=== PATIENT | female | born 1935 | race Two or more races ===

== ENCOUNTER 2016-12-19 17:09 | Inpatient (IN) | payer MEDICARE, BC ==
[~2016-12-19] VITALS: Ht 157.5 cm; Wt 59.0 kg
[2016-12-19 17:15] VITALS: BP 143/70
--- NOTE | 2016-12-19 17:29 | Emergency Room Report ---
History of Present Illness General Chief Complaint: Altered Level of Consciousness Source: Patient, Family Member Present Illness HPI 81-year-old female history of stage V pancreatic cancer, not currently on chemotherapy however finished it in the past (last was "few mos ago", also with R sided chemo port placed ~1 mo ago, presenting with fever for 3 days. Patient very tired and lethargic, history obtained by daughter. States that patient has had a fever MAXIMUM TEMPERATURE of 103, decreased by mouth intake. Denies any coughing or nausea. States that she had diarrhea about 2 episodes per day for the last 2 days. Denies any recent antibiotic use. Denies any recent hospitalizations. Allergies: Coded Allergies: No Known Allergies (Unverified , 12/19/16) Patient History Past Medical History: see triage record Past Surgical History: none Pertinent Family History: none Now: No Reviewed Nursing Documentation: PMH: Agreed, PSxH: Agreed Nursing Documentation-PMH Hx Cardiac Problems: No Hx Hypertension: No Hx Pacemaker: No Hx Asthma: No Hx COPD: No Hx Diabetes: No Hx Cancer: Yes - PANCREAS Hx Gastrointestinal Problems: No Hx Dialysis: No Hx Neurological Problems: Yes - DEMENTIA Hx Cerebrovascular Accident: No Hx Seizures: No Review of Systems All Other Systems: negative except mentioned in HPI Physical Exam Vital Signs Date Time Temp Pulse Resp B/P (MAP) Pulse Ox O2 Delivery O2 Flow Rate FiO2 12/19/16 17:10 130 16 145/78 88 Room Air Sp02 EP Interpretation: reviewed, normal General Appearance: other - Thin fragile elderly female, appears lethargic, however calm cooperative oriented x3. Head: normocephalic, atraumatic Eyes: bilateral eye normal inspection, bilateral eye PERRL, bilateral eye EOMI ENT: normal ENT inspection, normal pharynx, normal voice, moist mucus membranes Neck: normal inspection, full range of motion, supple Respiratory: normal inspection, lungs clear, normal breath sounds, no respiratory distress, no retraction, no wheezing, speaking full sentences, chest symmetrical Cardiovascular #1: normal inspection, regular rate, rhythm, no edema, normal capillary refill Cardiovascular #2: 2+ radial (R), 2+ radial (L) Gastrointestinal: normal inspection, non tender, soft, non-distended, no guarding Musculoskeletal: normal inspection, back normal, normal range of motion, non- tender Neurologic: normal inspection, alert, oriented x3, responsive, motor strength/ tone normal, sensory intact, normal gait, speech normal Psychiatric: normal inspection, judgement/insight normal, memory normal Skin: normal inspection, normal color, no rash, warm/dry, well hydrated, normal turgor Procedures Critical Care Time Critical Care Time 40 minutes of CC time 81-year-old female with fever chills altered mental status VS: Tachycardic, febrile, tachypneic Sepsis criteria met Airway patent. Not hypoxic. PLAN: IV access, labs, lactate, Blood/Urine Cx, Abx Anticipate admission to Tele vs. PEDRO CC time also includes review of labs, review of EMR, discussion with family and paperwork from SNF, d/w hospitalist CC could include dosing of pressors, additional Abx CC time does not include procedures Medical Decision Making Diagnostic Impression: Primary Impression: Severe sepsis Additional Impressions: DNR (do not resuscitate) Pancreatic cancer UTI (urinary tract infection) ER Course 81-year-old female presenting with fever DDX: Sepsis 2/2 UTI, PNA, bacteremia, will also consider intra-abdominal pathology such as colitis / diverticulitis / acalculous cholecystitis if no other course found but at this time abdomen soft, NT, ND Also patient with R sided chemo port that can be source of infection Plan: Airway patent, not hypoxic IV access - 30cc/kg bolus NS Obtain labs including cbc, bmp, blood culture, blood gas, lactate, ua, ucx CXR EKG Broad spectrum ABX ER course: Pt's airway remains patent Patient given NS at 30cc/kg bolus Patient's BP has remained stable with MAP > 65 Given broad spectrum abx - vancomycin and cefepime I spoke to both patient's daughter and son, states it is okay to admit patient to [place] as her daughter in law requesting [facility]. I also spoke in depth with patient and her children, patient is DNR/DNI Sepsis Re-examination Time: 7:30 PM VS: Temp 98.3 HR 96 BP 120/90 RR 19 CVS:tachycardic, regular rhythm Respiratory: Lungs clear bilaterally Peripheral pulses: 2+ radial Capillary refill: <2 seconds Skin exam: warm, dry, no rash, not mottled Disposition: Patient will admitted to telemetry Patient requires close monitoring of respiratory/hemodynamic status and continuation of IV antibiotics. D/W Hospitalist Please note that this Emergency Department Report was dictated using [employer] representative technology software, occasionally this can lead to erroneous entry secondary to interpretation by the dictation equipment. EKG Diagnostic Results EP Interpretation: Yes Rate: tachycardic Rhythm: NSR ST Segments: No acute changes ASA given to patient: No Rhythm Strip EP Interpretation: Yes Rate: 120 Rhythm: NSR, no PVCs, no ectopy Chest X-ray CXR: Ordered: Yes 1 view Indication: fever EP interpretation: Yes Interpretation: cannot properly evaluate L lung base ?effusion vs. infiltrate Impression: effusion vs. infiltrate L lung base Electronically signed by Basilia Newton MD Laboratory Tests Test 12/19/16 17:25 12/19/16 19:23 White Blood Count 16.9 K/UL (4.8-10.8) H Red Blood Count 4.04 M/UL (4.20-5.40) L Hemoglobin 11.0 G/DL (12.0-16.0) L Hematocrit 36.9 % (37.0-47.0) L Mean Corpuscular Volume 91 FL (80-99) Mean Corpuscular Hemoglobin 27.2 PG (27.0-31.0) Mean Corpuscular Hemoglobin Concent 29.8 G/DL (32.0-36.0) L Red Cell Distribution Width 16.1 % (11.6-14.8) H Platelet Count 201 K/UL (150-450) Mean Platelet Volume 6.6 FL (6.5-10.1) Neutrophils (%) (Auto) % (45.0-75.0) Lymphocytes (%) (Auto) % (20.0-45.0) Monocytes (%) (Auto) % (1.0-10.0) Eosinophils (%) (Auto) % (0.0-3.0) Basophils (%) (Auto) % (0.0-2.0) Differential Total Cells Counted 100 Neutrophils % (Manual) 88 % (45-75) H Lymphocytes % (Manual) 7 % (20-45) L Monocytes % (Manual) 5 % (1-10) Eosinophils % (Manual) 0 % (0-3) Basophils % (Manual) 0 % (0-2) Band Neutrophils 0 % (0-8) Platelet Estimate Adequate Platelet Morphology Normal Hypochromasia 1+ Anisocytosis 1+ Sodium Level 140 MMOL/L (136-145) Potassium Level 3.4 MMOL/L (3.5-5.1) L Chloride Level 104 MMOL/L (98-107) Carbon Dioxide Level 21 MMOL/L (21-32) Anion Gap 15 mmol/L (5-15) Blood Urea Nitrogen 16 mg/dL (7-18) Creatinine 1.2 MG/DL (0.55-1.30) Estimate Glomerular Filtration Rate mL/min (>60) Glucose Level 109 MG/DL (74-106) H Lactic Acid Level 1.00 mmol/L (0.66-2.22) Calcium Level 9.0 MG/DL (8.5-10.1) Total Bilirubin 1.2 MG/DL (0.2-1.0) H Direct Bilirubin 0.6 MG/DL (0.0-0.3) H Aspartate Amino Transferase (AST) 50 U/L (15-37) H Alanine Aminotransferase (ALT) 31 U/L (12-78) Alkaline Phosphatase 336 U/L (46-116) H Creatine Kinase MB 0.6 NG/ML (0.0-3.6) Troponin I 0.001 ng/mL (0.000-0.056) Pro-B-Type Natriuretic Peptide 1630 pg/mL (0-125) H Total Protein 6.7 G/DL (6.4-8.2) Albumin 2.8 G/DL (3.4-5.0) L Globulin 3.9 g/dL Albumin/Globulin Ratio 0.7 (1.0-2.7) L Urine Color Brown Urine Appearance Clear Urine pH 5 (4.5-8.0) Urine Specific [place] 1.020 (1.005-1.035) Urine Protein 2+ (NEGATIVE) H Urine Glucose (UA) Negative (NEGATIVE) Urine Ketones 3+ (NEGATIVE) H Urine Occult Blood 4+ (NEGATIVE) H Urine Nitrite Negative (NEGATIVE) Urine Bilirubin Negative (NEGATIVE) Urine Urobilinogen 4 MG/DL (0.0-1.0) H Urine Leukocyte Esterase 2+ (NEGATIVE) H Urine RBC 10-15 /HPF (0 - 2) H Urine WBC 5-10 /HPF (0 - 2) H Urine Squamous Epithelial Cells Few /LPF (NONE/OCC) Urine Amorphous Sediment Few /LPF (NONE) H Urine Bacteria Moderate /HPF (NONE) H Last Vital Signs Date Time Temp Pulse Resp B/P (MAP) Pulse Ox O2 Delivery O2 Flow Rate FiO2 12/19/16 17:10 130 16 145/78 88 Room Air Disposition: ADMITTED INPATIENT Condition: Serious Basilia Newton M.D. Dec 19, 2016 17:29
[2016-12-19] MEDS ORDERED: Cefepime HCl 1 GM in NS 55 ML IV SCH (17:30)
[2016-12-19] MEDS ORDERED: Vancomycin 1 GM in NS 275 ML IVPB ONE (17:30)
[2016-12-19] MEDS ORDERED: Cefepime 1gm vial ONE (17:40)
[2016-12-19 18:00] LABS: MEAN CORPUSCULAR HEMOGLOBIN 27.2 PG (27.0-31.0); MEAN CORPUSCULAR HGB CONC 29.8 G/DL (32.0-36.0); MEAN CORPUSCULAR VOLUME 91 FL (80-99); MEAN PLATELET VOLUME 6.6 FL (6.5-10.1); PLATELET COUNT 201 K/UL (150-450); RED BLOOD COUNT 4.04 M/UL (4.20-5.40); RED CELL DISTRIBUTION WIDTH 16.1 % (11.6-14.8); WHITE BLOOD COUNT 16.9 K/UL (4.8-10.8)
[2016-12-19 18:33] LABS: ANION GAP 15 mmol/L (5-15); CARBON DIOXIDE 21 MMOL/L (21-32); CHLORIDE 104 MMOL/L (98-107); CREATININE 1.2 MG/DL (0.55-1.30); POTASSIUM 3.4 MMOL/L (3.5-5.1); SODIUM 140 MMOL/L (136-145)
[2016-12-19] MEDS ORDERED: LORazepam Inj 2mg/ml 1ml IV ONE (18:45)
[2016-12-19] MEDS ORDERED: Vancomycin 1gm inj IVPB ONE (18:46)
[2016-12-19 18:47] LABS: ALANINE AMINOTRANSFERASE 31 U/L (12-78); ALBUMIN/GLOBULIN RATIO 0.7 (1.0-2.7); ASPARTATE AMINO TRANSFERASE 50 U/L (15-37); CKMB 0.6 NG/ML (0.0-3.6); TOTAL PROTEIN 6.7 G/DL (6.4-8.2)
[2016-12-19 19:00] VITALS: BP 124/53
[2016-12-19 19:00] LABS: BILIRUBIN,DIRECT 0.6 MG/DL (0.0-0.3)
[2016-12-19] MEDS ORDERED: METOPROLOL TART25 MG ORAL (19:33)
[2016-12-19] MEDS ORDERED: TRAMADOL HCL50 MG ORAL (19:33)
[2016-12-19 19:43] LABS: ANISOCYTOSIS 1+; BAND NEUTROPHILS % (MANUAL) 0 % (0-8); BASOPHILS % (MANUAL) 0 % (0-2); EOSINOPHILS % (MANUAL) 0 % (0-3); HYPOCHROMASIA 1+; LYMPHOCYTES % (MANUAL) 7 % (20-45); NEUTROPHILS % (MANUAL) 88 % (45-75); PLATELET ESTIMATE ADEQUATE; PLATELET MORPHOLOGY NORMAL; TOTAL CELLS COUNTED 100
[2016-12-19 19:49] LABS: APPEARANCE,URINE CLEAR; KETONES,URINE 3+ (NEGATIVE); LEUKOCYTE ESTERASE ,URINE 2+ (NEGATIVE); NITRITE,URINE NEGATIVE (NEGATIVE); PH,URINE 5 (4.5-8.0); PROTEIN,URINE 2+ (NEGATIVE); UROBILINOGEN,URINE 4 MG/DL (0.0-1.0)
[2016-12-19 19:53] LABS: AMORPHOUS SEDIMENT,UR FEW /LPF; BACTERIA,URINE MODERATE /HPF; SQUAMOUS EPITHELIAL CELL,UR FEW /LPF (NONE/OCC)
[2016-12-19 21:00] VITALS: BP 124/58
[2016-12-19] MEDS ORDERED: Nitroglycerin Subl 0.4mg tab SL PRN (21:45)
[2016-12-19] MEDS ORDERED: Albuterol/Ipratropium 3ml neb HHN PRN (21:45)
[2016-12-19] MEDS ORDERED: Miralax 17gm pkt ORAL PRN (21:45)
[2016-12-19 22:30] VITALS: BP 118/54
[2016-12-20 08:00] VITALS: BP 150/80
[2016-12-20] MEDS ORDERED: Heparin 5000 units/ml inj SUBQ SCH (09:00)
[2016-12-20] MEDS ORDERED: Morphine Sulfate 4mg/ml Inj IVP PRN (09:00)
[2016-12-20] MEDS ORDERED: ALPRAZolam 0.5mg tab ORAL PRN ×2 (09:00→17:00)
[2016-12-20] MEDS ORDERED: Metoprolol 25mg tab ORAL SCH (10:15)
--- NOTE | 2016-12-20 10:23 | Diagnostic Imaging Report ---
Indication: PAIN Technique: One view of the chest Comparison: none Findings: There is a right chest port catheter. There is a left-sided pleural effusion. The lungs, right pleural space are clear. Heart size is normal. Aorta is elongated tortuous and calcified. There is some retrocardiac atelectasis Impression: Left pleural effusion Other findings as noted
--- NOTE | 2016-12-20 11:17 | History and Physical ---
History of Present Illness General Date patient seen: Dec 19, 2016 Time patient seen: 21:00 Reason for Hospitalization: Altered Level of Consciousness Present Illness HPI 81-year-old female with PMHx of stage V pancreatic cancer, with R sided chemo port placed ~1 mo ago, presenting with fever for 3 days. Patient looked very tired and lethargic, She had a fever of 103. Denies any coughing or nausea. States that she had diarrhea about 2 episodes per day for the last 2 days. She was tachycardic and tachypnic and admitted to telemetry for further work up. Allergies: Coded Allergies: No Known Allergies (Unverified , 12/19/16) Medication History Scheduled Metoprolol Tartrate* (Metoprolol Tartrate*), 25 MG ORAL EVERY 12 HOURS, ( Reported) Tramadol Hcl* (Ultram*), 50 MG ORAL TID, (Reported) Patient History Healthcare decision maker CARLITOS TEJADA Resuscitation status Do Not Resuscitate Advanced Directive on File No Past Medical/Surgical History Past Medical/Surgical History: (1) HTN (hypertension) (2) Pancreatic cancer Review of Systems All Other Systems: negative except mentioned in HPI Physical Exam General Appearance: cachetic Lines, tubes and drains: peripheral HEENT: normocephalic, atraumatic Neck: non-tender, normal alignment Respiratory/Chest: chest wall non-tender, lungs clear Breasts: no masses Cardiovascular/Chest: normal peripheral pulses Abdomen: normal bowel sounds, non tender Genitourinary/Rectal: normal genital exam Extremities: normal range of motion Neurologic: post doctoral researcher II-XII grossly normal Last 24 Hour Vital Signs Date Time Temp Pulse Resp B/P (MAP) Pulse Ox O2 Delivery O2 Flow Rate FiO2 12/20/16 10:50 74 150/80 12/20/16 08:40 74 18 Room Air 21 12/20/16 08:40 Nasal Cannula 2.0 28 12/20/16 08:00 97.8 82 20 150/80 96 Room Air 12/20/16 04:00 85 12/20/16 00:00 77 12/19/16 22:45 98.3 91 17 118/54 97 Nasal Cannula 3.0 12/19/16 22:30 98.3 91 17 118/54 97 Nasal Cannula 3.0 12/19/16 21:00 98.3 96 17 124/58 98 Room Air 12/19/16 19:00 113 21 124/53 99 Room Air 12/19/16 17:15 102.9 121 20 143/70 99 Room Air 12/19/16 17:10 130 16 145/78 88 Room Air Laboratory Tests Test 12/19/16 17:25 12/19/16 19:23 White Blood Count 16.9 K/UL (4.8-10.8) H Red Blood Count 4.04 M/UL (4.20-5.40) L Hemoglobin 11.0 G/DL (12.0-16.0) L Hematocrit 36.9 % (37.0-47.0) L Mean Corpuscular Volume 91 FL (80-99) Mean Corpuscular Hemoglobin 27.2 PG (27.0-31.0) Mean Corpuscular Hemoglobin Concent 29.8 G/DL (32.0-36.0) L Red Cell Distribution Width 16.1 % (11.6-14.8) H Platelet Count 201 K/UL (150-450) Mean Platelet Volume 6.6 FL (6.5-10.1) Neutrophils (%) (Auto) % (45.0-75.0) Lymphocytes (%) (Auto) % (20.0-45.0) Monocytes (%) (Auto) % (1.0-10.0) Eosinophils (%) (Auto) % (0.0-3.0) Basophils (%) (Auto) % (0.0-2.0) Differential Total Cells Counted 100 Neutrophils % (Manual) 88 % (45-75) H Lymphocytes % (Manual) 7 % (20-45) L Monocytes % (Manual) 5 % (1-10) Eosinophils % (Manual) 0 % (0-3) Basophils % (Manual) 0 % (0-2) Band Neutrophils 0 % (0-8) Platelet Estimate Adequate Platelet Morphology Normal Hypochromasia 1+ Anisocytosis 1+ Sodium Level 140 MMOL/L (136-145) Potassium Level 3.4 MMOL/L (3.5-5.1) L Chloride Level 104 MMOL/L (98-107) Carbon Dioxide Level 21 MMOL/L (21-32) Anion Gap 15 mmol/L (5-15) Blood Urea Nitrogen 16 mg/dL (7-18) Creatinine 1.2 MG/DL (0.55-1.30) Estimat Glomerular Filtration Rate mL/min (>60) Glucose Level 109 MG/DL (74-106) H Lactic Acid Level 1.00 mmol/L (0.66-2.22) Calcium Level 9.0 MG/DL (8.5-10.1) Total Bilirubin 1.2 MG/DL (0.2-1.0) H Direct Bilirubin 0.6 MG/DL (0.0-0.3) H Aspartate Amino Transf (AST/SGOT) 50 U/L (15-37) H Alanine Aminotransferase (ALT/SGPT) 31 U/L (12-78) Alkaline Phosphatase 336 U/L (46-116) H Creatine Kinase MB 0.6 NG/ML (0.0-3.6) Troponin I 0.001 ng/mL (0.000-0.056) Pro-B-Type Natriuretic Peptide 1630 pg/mL (0-125) H Total Protein 6.7 G/DL (6.4-8.2) Albumin 2.8 G/DL (3.4-5.0) L Globulin 3.9 g/dL Albumin/Globulin Ratio 0.7 (1.0-2.7) L Urine Color Brown Urine Appearance Clear Urine pH 5 (4.5-8.0) Urine Specific [place] 1.020 (1.005-1.035) Urine Protein 2+ (NEGATIVE) H Urine Glucose (UA) Negative (NEGATIVE) Urine Ketones 3+ (NEGATIVE) H Urine Occult Blood 4+ (NEGATIVE) H Urine Nitrite Negative (NEGATIVE) Urine Bilirubin Negative (NEGATIVE) Urine Urobilinogen 4 MG/DL (0.0-1.0) H Urine Leukocyte Esterase 2+ (NEGATIVE) H Urine RBC 10-15 /HPF (0 - 2) H Urine WBC 5-10 /HPF (0 - 2) H Urine Squamous Epithelial Cells Few /LPF (NONE/OCC) Urine Amorphous Sediment Few /LPF (NONE) H Urine Bacteria Moderate /HPF (NONE) H Microbiology Date/Time Source Procedure Growth Status 12/19/16 19:23 Urine,Clean Catch Urine Culture - Preliminary Resulted Height (Feet): 5 Height (Inches): 2.00 Weight (Pounds): 130 Medications Current Medications Medications (Trade) Dose Ordered Sig/Charlene Route PRN Reason Start Time Stop Time Status Last Admin Dose Admin Acetaminophen (Tylenol) 650 mg Q4H PRN ORAL Fever/Headache/Mild Pain 12/20/16 09:45 01/19/17 09:44 Albuterol/ Ipratropium (Albuterol/ Ipratropium) 3 ml Q4H PRN HHN Shortness of Breath 12/19/16 21:45 12/24/16 21:44 Alprazolam (Xanax) 0.5 mg Q6H PRN ORAL For Anxiety 12/20/16 09:00 12/27/16 08:59 Cefepime HCl 1 gm/ Dextrose 55 ml @ 110 mls/hr DAILY@1800 IVPB 12/20/16 18:00 12/27/16 17:59 Heparin Sodium (Porcine) (Heparin 5000 units/ml) 5,000 units EVERY 12 HOURS SUBQ 12/20/16 09:00 01/19/17 08:59 12/20/16 08:16 Metoprolol Tartrate (Lopressor) 25 mg EVERY 12 HOURS ORAL 12/20/16 10:15 01/19/17 10:14 12/20/16 10:50 Morphine Sulfate (Morphine Sulfate) 4 mg Q4H PRN IVP Severe Pain (Pain Scale 7-10) 12/20/16 09:00 12/27/16 08:59 Nitroglycerin (Ntg) 0.4 mg Q5M PRN SL Prn Chest Pain 12/19/16 21:45 01/18/17 21:44 Ondansetron HCl (Zofran) 4 mg Q6H PRN IVP Nausea & Vomiting 12/19/16 21:45 01/18/17 21:44 Polyethylene Glycol (Miralax) 17 gm DAILYPRN PRN ORAL Constipation 12/19/16 21:45 01/18/17 21:44 Temazepam (Restoril) 15 mg HSPRN PRN ORAL Insomnia 12/19/16 21:45 12/26/16 21:44 Vancomycin HCl (Vanco rx to dose) 1 ea DAILY PRN MISC PRN RX TO DOSE PROTOCOL 12/19/16 22:15 01/18/17 22:14 Vancomycin HCl 1 gm/Dextrose 250 ml @ 166.636 mls/hr Q24H IVPB 12/20/16 18:30 12/25/16 18:29 Assessment/Plan Problem List: (1) Severe sepsis ICD Codes: A41.9 - Sepsis, unspecified organism; R65.20 - Severe sepsis without septic shock SNOMED: 72771223 (2) Acute encephalopathy ICD Codes: G93.40 - Encephalopathy, unspecified SNOMED: 7829816 (3) UTI (urinary tract infection) ICD Codes: N39.0 - Urinary tract infection, site not specified SNOMED: 85244315 (4) Pancreatic cancer ICD Codes: C25.9 - Malignant neoplasm of pancreas, unspecified SNOMED: 362639534 (5) Port-a-cath in place ICD Codes: Z95.828 - Presence of other vascular implants and grafts SNOMED: 101110157 (6) DNR (do not resuscitate) ICD Codes: Z66 - Do not resuscitate SNOMED: 045397923 Assessment/Plan IV fluids IV abx zee culture f/u blood cultures ID and oncology consult MARIOLA MAJOR Dec 20, 2016 11:17
--- NOTE | 2016-12-20 11:19 | Pulmonology Progress Note ---
Assessment/Plan Problems: (1) Severe sepsis (2) Acute encephalopathy (3) UTI (urinary tract infection) (4) Pancreatic cancer (5) Anemia (6) DNR (do not resuscitate) (7) Port-a-cath in place Assessment/Plan mental status and vital signs have improved patient complaining of hospital stay and wants to leave check blood cultures ID evaluation check CEA anemia w/u ordered. Subjective Allergies: Coded Allergies: No Known Allergies (Unverified , 12/19/16) Objective Last 24 Hour Vital Signs Date Time Temp Pulse Resp B/P (MAP) Pulse Ox O2 Delivery O2 Flow Rate FiO2 12/20/16 10:50 74 150/80 12/20/16 08:40 74 18 Room Air 21 12/20/16 08:40 Nasal Cannula 2.0 28 12/20/16 08:00 97.8 82 20 150/80 96 Room Air 12/20/16 04:00 85 12/20/16 00:00 77 12/19/16 22:45 98.3 91 17 118/54 97 Nasal Cannula 3.0 12/19/16 22:30 98.3 91 17 118/54 97 Nasal Cannula 3.0 12/19/16 21:00 98.3 96 17 124/58 98 Room Air 12/19/16 19:00 113 21 124/53 99 Room Air 12/19/16 17:15 102.9 121 20 143/70 99 Room Air 12/19/16 17:10 130 16 145/78 88 Room Air Microbiology Date/Time Source Procedure Growth Status 12/19/16 19:23 Urine,Clean Catch Urine Culture - Preliminary Resulted Laboratory Tests 12/19/16 17:25: White Blood Count 16.9H, Red Blood Count 4.04L, Hemoglobin 11.0L, Hematocrit 36.9L, Mean Corpuscular Volume 91, Mean Corpuscular Hemoglobin 27.2, Mean Corpuscular Hemoglobin Concent 29.8L, Red Cell Distribution Width 16.1H, Platelet Count 201, Mean Platelet Volume 6.6, Neutrophils (%) (Auto) , Lymphocytes (%) (Auto) , Monocytes (%) (Auto) , Eosinophils (%) (Auto) , Basophils (%) (Auto) , Differential Total Cells Counted 100, Neutrophils % ( Manual) 88H, Lymphocytes % (Manual) 7L, Monocytes % (Manual) 5, Eosinophils % ( Manual) 0, Basophils % (Manual) 0, Band Neutrophils 0, Platelet Estimate Adequate, Platelet Morphology Normal, Hypochromasia 1+, Anisocytosis 1+, Sodium Level 140, Potassium Level 3.4L, Chloride Level 104, Carbon Dioxide Level 21, Anion Gap 15, Blood Urea Nitrogen 16, Creatinine 1.2, Estimat Glomerular Filtration Rate , Glucose Level 109H, Lactic Acid Level 1.00, Calcium Level 9.0 , Total Bilirubin 1.2H, Direct Bilirubin 0.6H, Aspartate Amino Transf (AST/SGOT ) 50H, Alanine Aminotransferase (ALT/SGPT) 31, Alkaline Phosphatase 336H, Creatine Kinase MB 0.6, Troponin I 0.001, Pro-B-Type Natriuretic Peptide 1630H, Total Protein 6.7, Albumin 2.8L, Globulin 3.9, Albumin/Globulin Ratio 0.7L 12/19/16 19:23: Urine Color Brown, Urine Appearance Clear, Urine pH 5, Urine Specific [place] 1.020, Urine Protein 2+H, Urine Glucose (UA) Negative, Urine Ketones 3+H, Urine Occult Blood 4+H, Urine Nitrite Negative, Urine Bilirubin Negative, Urine Urobilinogen 4H, Urine Leukocyte Esterase 2+H, Urine RBC 10-15H, Urine WBC 5-10H , Urine Squamous Epithelial Cells Few, Urine Amorphous Sediment FewH, Urine Bacteria ModerateH Current Medications Medications (Trade) Dose Ordered Sig/Charlene Route PRN Reason Start Time Stop Time Status Last Admin Dose Admin Acetaminophen (Tylenol) 650 mg Q4H PRN ORAL Fever/Headache/Mild Pain 12/20/16 09:45 01/19/17 09:44 Albuterol/ Ipratropium (Albuterol/ Ipratropium) 3 ml Q4H PRN HHN Shortness of Breath 12/19/16 21:45 12/24/16 21:44 Alprazolam (Xanax) 0.5 mg Q6H PRN ORAL For Anxiety 12/20/16 09:00 12/27/16 08:59 Cefepime HCl 1 gm/ Dextrose 55 ml @ 110 mls/hr DAILY@1800 IVPB 12/20/16 18:00 12/27/16 17:59 Heparin Sodium (Porcine) (Heparin 5000 units/ml) 5,000 units EVERY 12 HOURS SUBQ 12/20/16 09:00 01/19/17 08:59 12/20/16 08:16 Metoprolol Tartrate (Lopressor) 25 mg EVERY 12 HOURS ORAL 12/20/16 10:15 01/19/17 10:14 12/20/16 10:50 Morphine Sulfate (Morphine Sulfate) 4 mg Q4H PRN IVP Severe Pain (Pain Scale 7-10) 12/20/16 09:00 12/27/16 08:59 Nitroglycerin (Ntg) 0.4 mg Q5M PRN SL Prn Chest Pain 12/19/16 21:45 01/18/17 21:44 Ondansetron HCl (Zofran) 4 mg Q6H PRN IVP Nausea & Vomiting 12/19/16 21:45 01/18/17 21:44 Polyethylene Glycol (Miralax) 17 gm DAILYPRN PRN ORAL Constipation 12/19/16 21:45 01/18/17 21:44 Temazepam (Restoril) 15 mg HSPRN PRN ORAL Insomnia 12/19/16 21:45 12/26/16 21:44 Vancomycin HCl (Vanco rx to dose) 1 ea DAILY PRN MISC PRN RX TO DOSE PROTOCOL 12/19/16 22:15 01/18/17 22:14 Vancomycin HCl 1 gm/Dextrose 250 ml @ 166.636 mls/hr Q24H IVPB 12/20/16 18:30 12/25/16 18:29 MARIOLA MAJOR Dec 20, 2016 11:19
[2016-12-20 12:00] VITALS: BP 149/77
[2016-12-20] MEDS ORDERED: KCl 10% 40mEq/30ml liquid NG ONE (12:00)
[2016-12-20] MEDS ORDERED: Nitroglycerin Subl 0.4mg tab SL PRN (16:30)
[2016-12-20] MEDS ORDERED: Albuterol/Ipratropium 3ml neb HHN PRN (17:00)
[2016-12-20] MEDS ORDERED: Miralax 17gm pkt ORAL PRN (17:00)
[2016-12-20] MEDS ORDERED: Cefepime HCl 1 GM in D5W 55 ML IVPB SCH (18:00)
[2016-12-20] MEDS: Cefepime HCl 1 GM in D5W 55 ML IVPB SCH (18:16)
[2016-12-20 19:58] VITALS: BP 152/85
[2016-12-20] MEDS: Metoprolol 25mg tab ORAL SCH (20:51)
[2016-12-20] MEDS: Heparin 5000 units/ml inj SUBQ SCH (20:52)
--- NOTE | 2016-12-20 21:59 | Consultation ---
History of Present Illness General Chief Complaint: Altered Level of Consciousness Present Illness HPI 81-year-old female with PMHx of stage V pancreatic cancer, with R sided chemo port placed ~1 mo ago, presenting with fever for 3 days. the daughter was at her bedside.the pt was agitated and stated that she wanted to leave. the pt is illogical and lacks capacity/ the pt has cognitive impairment. Allergies: Coded Allergies: No Known Allergies (Unverified , 12/19/16) Medication History Scheduled Metoprolol Tartrate* (Metoprolol Tartrate*), 25 MG ORAL EVERY 12 HOURS, ( Reported) Tramadol Hcl* (Ultram*), 50 MG ORAL TID, (Reported) Patient History Limited by: medical condition History Provided By: Patient, Family Member, Medical Record, PMD Healthcare decision maker CARLITOS TEJADA Resuscitation status Do Not Resuscitate Advanced Directive on File No Past Medical/Surgical History Past Medical/Surgical History: (1) UTI (urinary tract infection) (2) Pancreatic cancer (3) DNR (do not resuscitate) (4) HTN (hypertension) (5) Severe sepsis (6) Port-a-cath in place (7) Acute encephalopathy (8) Anemia Review of Systems Psychiatric: Reports: prior hx, anxiety, depressed feelings, emotional problems Physical Exam General Appearance: no apparent distress, alert, agitated, overweight Neurologic: alert, oriented x 3, responsive, depressed affect Last 24 Hour Vital Signs Date Time Temp Pulse Resp B/P (MAP) Pulse Ox O2 Delivery O2 Flow Rate FiO2 12/20/16 20:51 74 152/85 12/20/16 19:58 97.6 74 20 152/85 97 Room Air 12/20/16 12:00 75 12/20/16 12:00 97.5 72 20 149/77 94 Room Air 12/20/16 10:50 74 150/80 12/20/16 08:40 74 18 Room Air 21 12/20/16 08:40 Nasal Cannula 2.0 28 12/20/16 08:00 97.8 82 20 150/80 96 Room Air 12/20/16 08:00 83 12/20/16 04:00 85 12/20/16 00:00 77 12/19/16 22:45 98.3 91 17 118/54 97 Nasal Cannula 3.0 12/19/16 22:30 98.3 91 17 118/54 97 Nasal Cannula 3.0 Intake and Output 12/20/16 12/21/16 19:00 07:00 Intake Total 120 ml Balance 120 ml Intake Oral 120 ml Height (Feet): 5 Height (Inches): 2.00 Weight (Pounds): 130 Medications Current Medications Medications (Trade) Dose Ordered Sig/Charlene Route PRN Reason Start Time Stop Time Status Last Admin Dose Admin Acetaminophen (Tylenol) 650 mg Q4H PRN ORAL Fever/Headache/Mild Pain 12/20/16 17:00 01/19/17 16:59 Albuterol/ Ipratropium (Albuterol/ Ipratropium) 3 ml Q4H PRN HHN Shortness of Breath 12/20/16 17:00 12/24/16 16:59 Alprazolam (Xanax) 0.5 mg Q6H PRN ORAL For Anxiety 12/20/16 17:00 12/27/16 16:59 12/20/16 18:37 Cefepime HCl 1 gm/ Dextrose 55 ml @ 110 mls/hr DAILY@1800 IVPB 12/20/16 18:00 12/27/16 17:59 12/20/16 18:16 Heparin Sodium (Porcine) (Heparin 5000 units/ml) 5,000 units EVERY 12 HOURS SUBQ 12/20/16 21:00 01/19/17 08:59 12/20/16 20:52 Metoprolol Tartrate (Lopressor) 25 mg EVERY 12 HOURS ORAL 12/20/16 21:00 01/19/17 10:14 12/20/16 20:51 Morphine Sulfate (Morphine Sulfate) 4 mg Q4H PRN IVP Severe Pain (Pain Scale 7-10) 12/20/16 17:00 12/27/16 08:59 Nitroglycerin (Ntg) 0.4 mg Q5M PRN SL Chest Pain 12/20/16 16:30 01/18/17 21:44 Ondansetron HCl (Zofran) 4 mg Q6H PRN IVP Nausea & Vomiting 12/20/16 17:00 01/18/17 16:59 Polyethylene Glycol (Miralax) 17 gm DAILYPRN PRN ORAL Constipation 12/20/16 17:00 01/18/17 16:59 Temazepam (Restoril) 15 mg HSPRN PRN ORAL Insomnia 12/20/16 17:00 12/26/16 16:59 12/20/16 21:53 Vancomycin HCl (Vanco rx to dose) 1 ea DAILY PRN MISC PRN RX TO DOSE PROTOCOL 12/20/16 17:00 01/19/17 16:59 Vancomycin HCl 1 gm/Dextrose 250 ml @ 166.636 mls/hr Q24H IVPB 12/20/16 18:30 12/25/16 18:29 12/20/16 18:47 Assessment/Plan Status: stable, progressing Assessment/Plan encephalopathy the pt lacks capacity to leave seroquel 25 q 6hr prn Melchor Villalobos M.D. Dec 20, 2016 21:59
[2016-12-21] VITALS: BP 140/80
[2016-12-21 04:00] VITALS: BP 142/69
[2016-12-21 08:07] VITALS: BP 140/80
[2016-12-21] MEDS: Metoprolol 25mg tab ORAL SCH ×2 (08:49→21:51)
[2016-12-21] MEDS: Heparin 5000 units/ml inj SUBQ SCH ×2 (08:50→21:55)
[2016-12-21 11:29] VITALS: BP 140/83
[2016-12-21] MEDS: Morphine Sulfate 4mg/ml Inj IVP PRN (12:01)
--- NOTE | 2016-12-21 12:48 | Pulmonology Progress Note ---
Assessment/Plan Problems: (1) Severe sepsis (2) Acute encephalopathy (3) UTI (urinary tract infection) (4) Pancreatic cancer (5) Anemia (6) DNR (do not resuscitate) (7) Port-a-cath in place Assessment/Plan still confused, refused all labs check blood cultures ID evaluation pending check CEA anemia w/u ordered. social service consult Subjective ROS Limited/Unobtainable: No Constitutional: Reports: no symptoms HEENT: Repors: no symptoms Respiratory: Reports: no symptoms Allergies: Coded Allergies: No Known Allergies (Unverified , 12/19/16) Objective Last 24 Hour Vital Signs Date Time Temp Pulse Resp B/P (MAP) Pulse Ox O2 Delivery O2 Flow Rate FiO2 12/21/16 11:43 Room Air 12/21/16 11:43 95 Room Air 12/21/16 11:29 97.0 84 20 140/83 95 Room Air 12/21/16 08:49 83 140/80 12/21/16 08:10 79 18 Room Air 21 12/21/16 08:07 97.2 83 14 140/80 93 Room Air 12/21/16 04:00 98.1 82 17 142/69 98 Room Air 12/21/16 00:00 97.9 80 19 140/80 95 Room Air 12/20/16 20:51 74 152/85 12/20/16 19:58 97.6 74 20 152/85 97 Room Air 12/20/16 19:20 95 Nasal Cannula 2.0 28 12/20/16 19:20 Nasal Cannula 2.0 28 12/20/16 19:15 78 18 Room Air 21 Intake and Output 12/21/16 12/22/16 19:00 07:00 # Voids 3 General Appearance: WD/WN HEENT: normocephalic, atraumatic Respiratory/Chest: chest wall non-tender, lungs clear Cardiovascular: normal peripheral pulses, normal rate Abdomen: normal bowel sounds, soft, non tender Genitourinary: normal external genitalia Extremities: no cyanosis Neurologic/Psychiatric: vice president of manufacturing II-XII grossly normal, no motor/sensory deficits Lymphatic: no neck adenopathy Microbiology Date/Time Source Procedure Growth Status 12/19/16 17:25 Blood Blood Culture - Preliminary NO GROWTH AFTER 24 HOURS Resulted 12/19/16 17:15 Blood Blood Culture - Preliminary NO GROWTH AFTER 24 HOURS Resulted 12/19/16 19:23 Urine,Clean Catch Urine Culture - Preliminary Gram Negative Bacillus 3 Resulted Current Medications Medications (Trade) Dose Ordered Sig/Charlene Route PRN Reason Start Time Stop Time Status Last Admin Dose Admin Acetaminophen (Tylenol) 650 mg Q4H PRN ORAL Fever/Headache/Mild Pain 12/20/16 17:00 01/19/17 16:59 Albuterol/ Ipratropium (Albuterol/ Ipratropium) 3 ml Q4H PRN HHN Shortness of Breath 12/20/16 17:00 12/24/16 16:59 Cefepime HCl 1 gm/ Dextrose 55 ml @ 110 mls/hr DAILY@1800 IVPB 12/20/16 18:00 12/27/16 17:59 12/20/16 18:16 Heparin Sodium (Porcine) (Heparin 5000 units/ml) 5,000 units EVERY 12 HOURS SUBQ 12/20/16 21:00 01/19/17 08:59 12/20/16 20:52 Metoprolol Tartrate (Lopressor) 25 mg EVERY 12 HOURS ORAL 12/20/16 21:00 01/19/17 10:14 12/20/16 20:51 Morphine Sulfate (Morphine Sulfate) 4 mg Q4H PRN IVP Severe Pain (Pain Scale 7-10) 12/20/16 17:00 12/27/16 08:59 12/21/16 12:01 Nitroglycerin (Ntg) 0.4 mg Q5M PRN SL Chest Pain 12/20/16 16:30 01/18/17 21:44 Ondansetron HCl (Zofran) 4 mg Q6H PRN IVP Nausea & Vomiting 12/20/16 17:00 01/18/17 16:59 Polyethylene Glycol (Miralax) 17 gm DAILYPRN PRN ORAL Constipation 12/20/16 17:00 01/18/17 16:59 Quetiapine Fumarate (SEROquel) 12.5 mg EVERY 4 HOURS PRN ORAL agitation 12/20/16 22:00 01/19/17 21:59 Temazepam (Restoril) 15 mg HSPRN PRN ORAL Insomnia 12/20/16 17:00 12/26/16 16:59 12/20/16 21:53 Vancomycin HCl (Vanco rx to dose) 1 ea DAILY PRN MISC PRN RX TO DOSE PROTOCOL 12/20/16 17:00 01/19/17 16:59 Vancomycin HCl 1 gm/Dextrose 250 ml @ 166.636 mls/hr Q24H IVPB 12/20/16 18:30 12/25/16 18:29 12/20/16 18:47 MARIOLA MAJOR Dec 21, 2016 12:48
--- NOTE | 2016-12-21 13:15 | Consultation ---
Consult Note Consult Note ID DIC # [id number] TIFFANIE DORANTES M.D. Dec 21, 2016 13:15
[2016-12-21 16:10] VITALS: BP 151/91
--- NOTE | 2016-12-21 16:55 | Cardiology Report ---
APPROVED REPORT EKG Measurement Heart [id number] Sinus tachycardia Cannot rule out Anterior infarct, age undetermined Abnormal ECG
[2016-12-21] MEDS: Cefepime HCl 1 GM in D5W 55 ML IVPB SCH (17:40)
[2016-12-21 17:54] LABS: INR 1.2 (0.9-1.1); PROTHROMBIN TIME 12.1 SEC (9.30-11.50)
[2016-12-21 17:56] LABS: BASOPHILS % (AUTO) 0.7 % (0.0-2.0); EOSINOPHILS % (AUTO) 2.9 % (0.0-3.0); LYMPHOCYTES % (AUTO) 18.9 % (20.0-45.0); MEAN CORPUSCULAR HEMOGLOBIN 27.9 PG (27.0-31.0); MEAN CORPUSCULAR HGB CONC 30.6 G/DL (32.0-36.0); MEAN CORPUSCULAR VOLUME 91 FL (80-99); MEAN PLATELET VOLUME 6.9 FL (6.5-10.1); MONOCYTES % (AUTO) 9.4 % (1.0-10.0); NEUTROPHILS % (AUTO) 68.1 % (45.0-75.0); PLATELET COUNT 195 K/UL (150-450); RED BLOOD COUNT 3.55 M/UL (4.20-5.40); WHITE BLOOD COUNT 10.3 K/UL (4.8-10.8)
[2016-12-21 18:01] LABS: LACTATE DEHYDROGENASE 309 U/L (81-234)
[2016-12-21 18:29] LABS: FOLIC ACID 8.1 NG/ML (3.1-17.5); IRON 43 ug/dL (50-175); TOTAL IRON BINDING CAPACITY 151 ug/dL (250-450)
[2016-12-21 18:29] LABS: ALANINE AMINOTRANSFERASE 50 U/L (12-78); ALBUMIN/GLOBULIN RATIO 0.7 (1.0-2.7); ANION GAP 9 mmol/L (5-15); ASPARTATE AMINO TRANSFERASE 158 U/L (15-37); CALCIUM 8.6 MG/DL (8.5-10.1); CARBON DIOXIDE 27 MMOL/L (21-32); CHLORIDE 105 MMOL/L (98-107); CREATININE 0.9 MG/DL (0.55-1.30); POTASSIUM 3.3 MMOL/L (3.5-5.1); SODIUM 141 MMOL/L (136-145); TOTAL PROTEIN 6.4 G/DL (6.4-8.2)
[2016-12-21 18:44] LABS: BILIRUBIN,DIRECT 1.3 MG/DL (0.0-0.3)
[2016-12-21 19:06] LABS: ANISOCYTOSIS 1+; EOSINOPHILS % (MANUAL) 1 % (0-3); HYPOCHROMASIA 1+; LYMPHOCYTES % (MANUAL) 16 % (20-45); NEUTROPHILS % (MANUAL) 76 % (45-75); PLATELET MORPHOLOGY NORMAL; TOTAL CELLS COUNTED 100
[2016-12-21 19:07] LABS: BAND NEUTROPHILS % (MANUAL) 0 % (0-8); BASOPHILS % (MANUAL) 0 % (0-2); PLATELET ESTIMATE ADEQUATE
[2016-12-21 19:54] VITALS: BP 149/72
[2016-12-21 20:12] LABS: ERYTHROCYTE SEDIMENTATION RATE 43 MM/HR (0-42); PATH BLOOD SMEAR/OMC SENT TO PATHOLOGIST; RETICULOCYTE COUNT 0.9 % (0.0-2.0)
--- NOTE | 2016-12-21 23:00 | Consultation ---
DATE OF CONSULTATION: 12/21/2016 INFECTIOUS DISEASES CONSULTATION CONSULTING PHYSICIAN: Yosvany Saenz M.D. REFERRING PHYSICIAN: Bj Sexton M.D. REASON FOR CONSULTATION: Evaluation of the patient for fever, UTI and antibiotic management. HISTORY OF PRESENT ILLNESS: The patient is an 81-year-old female with multiple medical problems who was brought to the hospital due to the fever x2 and possibly urinary tract infection. The patient is still on IV antibiotics. An Infectious Disease consultation has been requested for further evaluation of the patient's antibiotic management. The patient is confused. However, much of the information was gathered through interview of the patient's daughter. PAST MEDICAL HISTORY: History of breast cancer treated with intravenous chemotherapy about 2 years ago, possible mets to pancreas and liver, and history of dementia. ALLERGIES: No known drug allergies. MEDICATION: Vancomycin and cefepime. SOCIAL HISTORY: The patient lives at home with a caregiver. FAMILY HISTORY: Noncontributory. REVIEW OF SYSTEMS: HEENT: No recent change in vision or hearing. PULMONARY: No cough or shortness of breath. CARDIOVASCULAR: No chest pain or palpitation. GASTROINTESTINAL/ABDOMEN: As mentioned above. GENITOURINARY: Increase of urinary frequency. NEUROLOGIC: The patient had dementia with worsening mental status for about 4 months. PHYSICAL EXAMINATION: VITAL SIGNS: Temperature 97, blood pressure 140/80, pulse 86, respiratory rate 18, and T-max 102.9. HEENT: No pale conjunctivae. No icterus. NECK: No lymphadenopathy. CHEST: Clear. HEART: S1 and S2. ABDOMEN: Soft and nontender. EXTREMITIES: No cyanosis. SKIN: No rash. The patient has right upper chest. Has no erythema or tenderness. NEUROLOGIC: The patient is confused. LABORATORY AND DIAGNOSTIC DATA: White blood cells 16.9, hemoglobin 11, and platelets 201. BUN 16 and creatinine 1.2. ALT and AST are unremarkable. Alkaline phosphatase 136. Urine culture is growing gram-negative rods. Blood culture is pending and negative so far. Chest x-ray, left pleural effusion. ASSESSMENT: The patient is an 81-year-old female with: 1. Leukocytosis. 2. Low-grade fever, improving. 3. Urinary tract infection. 4. Elevated alkaline phosphatase, , also rule out biliary disease and obstruction. PLAN: 1. We will continue the patient on IV cefepime, DC vancomycin. 2. Monitor CBC. 3. Monitor BMP. 4. Liver function tests. 5. Ultrasound of the abdomen. 6. Based on the patient's clinical course and labs, we will do further recommendation. Thank you, Dr. Sexton for allowing me to participate in the care of this patient. I will follow the patient with you during this hospitalization. Yosvany Saenz M.D. DR: DANA JOB#: [id number] CC:
--- NOTE | 2016-12-21 23:41 | General Progress Note ---
Assessment/Plan Status: stable, progressing Assessment/Plan cognitive impairment agitation -the pt may not leave [facility] -the pt next of erika is her children, son and daughter Subjective Neurologic/Psychiatric: Reports: anxiety, depressed, emotional problems Allergies: Coded Allergies: No Known Allergies (Unverified , 12/19/16) Objective Last 24 Hour Vital Signs Date Time Temp Pulse Resp B/P (MAP) Pulse Ox O2 Delivery O2 Flow Rate FiO2 12/21/16 21:51 99 149/72 12/21/16 19:54 99 18 149/72 95 Room Air 12/21/16 16:10 97.9 84 20 151/91 97 Room Air 12/21/16 12:31 97.0 12/21/16 11:43 Room Air 12/21/16 11:43 95 Room Air 12/21/16 11:29 97.0 84 20 140/83 95 Room Air 12/21/16 08:49 83 140/80 12/21/16 08:10 79 18 Room Air 21 12/21/16 08:07 97.2 83 14 140/80 93 Room Air 12/21/16 04:00 98.1 82 17 142/69 98 Room Air 12/21/16 00:00 97.9 80 19 140/80 95 Room Air Intake and Output 12/21/16 12/22/16 19:00 07:00 Intake Total 240 ml Balance 240 ml Intake Oral 240 ml # Voids 7 Laboratory Tests 12/21/16 17:25: White Blood Count 10.3, Red Blood Count 3.55L, Hemoglobin 9.9L, Hematocrit 32.4L , Mean Corpuscular Volume 91, Mean Corpuscular Hemoglobin 27.9, Mean Corpuscular Hemoglobin Concent 30.6L, Red Cell Distribution Width 16.0H, Platelet Count 195, Mean Platelet Volume 6.9, Neutrophils (%) (Auto) 68.1, Lymphocytes (%) (Auto) 18.9L, Monocytes (%) (Auto) 9.4, Eosinophils (%) (Auto) 2.9, Basophils (%) (Auto) 0.7, Differential Total Cells Counted 100, Neutrophils % (Manual) 76H, Lymphocytes % (Manual) 16L, Monocytes % (Manual) 7, Eosinophils % (Manual) 1, Basophils % (Manual) 0, Band Neutrophils 0, Platelet Estimate Adequate, Platelet Morphology Normal, Hypochromasia 1+, Anisocytosis 1+ , Erythrocyte Sedimentation Rate 43H, Reticulocyte Count 0.9, Prothrombin Time 12.1H, Prothromb Time International Ratio 1.2H, Activated Partial Thromboplast Time 25, Iron Level 43L, Total Iron Binding Capacity 151L, Percent Iron Saturation 28, Unsaturated Iron Binding 108L, Lactate Dehydrogenase 309H, Vitamin B12 Level 1785H, Folate 8.1 Height (Feet): 5 Height (Inches): 2.00 Weight (Pounds): 130 General Appearance: no apparent distress, alert, confused Neurologic: alert, responsive, depressed affect Melchor Villalobos M.D. Dec 21, 2016 23:41
[2016-12-22] VITALS: BP 135/80
[2016-12-22 04:00] VITALS: BP 135/76
[2016-12-22 07:23] LABS: BASOPHILS % (AUTO) 0.8 % (0.0-2.0); EOSINOPHILS % (AUTO) 5.6 % (0.0-3.0); LYMPHOCYTES % (AUTO) 24.7 % (20.0-45.0); MEAN CORPUSCULAR HEMOGLOBIN 29.2 PG (27.0-31.0); MEAN CORPUSCULAR HGB CONC 33.1 G/DL (32.0-36.0); MEAN CORPUSCULAR VOLUME 88 FL (80-99); MEAN PLATELET VOLUME 6.7 FL (6.5-10.1); MONOCYTES % (AUTO) 9.3 % (1.0-10.0); NEUTROPHILS % (AUTO) 59.7 % (45.0-75.0); PLATELET COUNT 247 K/UL (150-450); RED BLOOD COUNT 3.68 M/UL (4.20-5.40); RED CELL DISTRIBUTION WIDTH 16.2 % (11.6-14.8); WHITE BLOOD COUNT 10.5 K/UL (4.8-10.8)
[2016-12-22 07:24] LABS: ALANINE AMINOTRANSFERASE 65 U/L (12-78); ALBUMIN/GLOBULIN RATIO 0.7 (1.0-2.7); ANION GAP 9 mmol/L (5-15); ASPARTATE AMINO TRANSFERASE 141 U/L (15-37); CALCIUM 8.6 MG/DL (8.5-10.1); CARBON DIOXIDE 27 MMOL/L (21-32); CHLORIDE 105 MMOL/L (98-107); CRP QUANT 10.4 mg/dL (0.00-0.90); MAGNESIUM 1.5 MG/DL (1.8-2.4); PHOSPHORUS 2.1 MG/DL (2.5-4.9); POTASSIUM 3.5 MMOL/L (3.5-5.1); SODIUM 141 MMOL/L (136-145); TOTAL PROTEIN 6.4 G/DL (6.4-8.2)
[2016-12-22 07:25] LABS: BILIRUBIN,DIRECT 0.5 MG/DL (0.0-0.3)
[2016-12-22 08:00] VITALS: BP 149/89
[2016-12-22 08:04] LABS: ERYTHROCYTE SEDIMENTATION RATE 48 MM/HR (0-42)
--- NOTE | 2016-12-22 10:13 | Infectious Diseases Prog Note ---
Assessment/Plan Assessment/Plan ASSESSMENT: 81 y/o female with: // K.pneumoniae UTI // Elevated LFTs r/o hepatobiliary disease - US: pending // Sepsis SP // Leukocytosis SP // Fever SP // Acute on chronic encephalopathy, m/l septic r/o met - baseline dementia // h/o breast CA // Elevated ESR, CRP // NKDA // DNR PLAN: - de-escalate empiric cefepime d# 2 to rocephin d# 1 ( ABX d# 2 / 5 ) based on cultures. Ok to complete course with PO levaquin at discharge - f/u final cultures - f/u abdo US - monitor CBC, temperatures - monitor BMP Subjective Allergies: Coded Allergies: No Known Allergies (Unverified , 12/19/16) Subjective fevers resolved confused Objective Vital Signs Last 24 Hour Vital Signs Date Time Temp Pulse Resp B/P (MAP) Pulse Ox O2 Delivery O2 Flow Rate FiO2 12/22/16 08:00 97.3 85 19 149/89 96 Room Air 12/22/16 07:25 88 18 Room Air 21 12/22/16 07:25 Room Air 21 12/22/16 07:25 95 Room Air 21 12/22/16 04:00 98.2 76 18 135/76 93 Room Air 12/22/16 00:00 98.6 83 20 135/80 96 Room Air 12/21/16 21:51 99 149/72 12/21/16 20:00 Room Air 12/21/16 20:00 97 Room Air 12/21/16 20:00 85 18 Room Air 12/21/16 19:54 99 18 149/72 95 Room Air 12/21/16 16:10 97.9 84 20 151/91 97 Room Air 12/21/16 12:31 97.0 12/21/16 11:43 Room Air 12/21/16 11:43 95 Room Air 12/21/16 11:29 97.0 84 20 140/83 95 Room Air Height (Feet): 5 Height (Inches): 2.00 Weight (Pounds): 130 General Appearance: no acute distress Respiratory/Chest: no respiratory distress Cardiovascular: normal rate, regular rhythm Abdomen: normal bowel sounds, soft, non tender, non distended Microbiology Date/Time Source Procedure Growth Status 12/19/16 17:25 Blood Blood Culture - Preliminary NO GROWTH AFTER 48 HOURS Resulted 12/19/16 17:15 Blood Blood Culture - Preliminary NO GROWTH AFTER 48 HOURS Resulted 12/19/16 19:23 Urine,Clean Catch Urine Culture - Final Klebsiella Pneumoniae Complete Laboratory Tests Test 12/21/16 17:25 12/22/16 05:20 White Blood Count 10.3 K/UL (4.8-10.8) 10.5 K/UL (4.8-10.8) Red Blood Count 3.55 M/UL (4.20-5.40) L 3.68 M/UL (4.20-5.40) L Hemoglobin 9.9 G/DL (12.0-16.0) L 10.7 G/DL (12.0-16.0) L Hematocrit 32.4 % (37.0-47.0) L 32.4 % (37.0-47.0) L Mean Corpuscular Volume 91 FL (80-99) 88 FL (80-99) Mean Corpuscular Hemoglobin 27.9 PG (27.0-31.0) 29.2 PG (27.0-31.0) Mean Corpuscular Hemoglobin Concent 30.6 G/DL (32.0-36.0) L 33.1 G/DL (32.0-36.0) Red Cell Distribution Width 16.0 % (11.6-14.8) H 16.2 % (11.6-14.8) H Platelet Count 195 K/UL (150-450) 247 K/UL (150-450) Mean Platelet Volume 6.9 FL (6.5-10.1) 6.7 FL (6.5-10.1) Neutrophils (%) (Auto) 68.1 % (45.0-75.0) 59.7 % (45.0-75.0) Lymphocytes (%) (Auto) 18.9 % (20.0-45.0) L 24.7 % (20.0-45.0) Monocytes (%) (Auto) 9.4 % (1.0-10.0) 9.3 % (1.0-10.0) Eosinophils (%) (Auto) 2.9 % (0.0-3.0) 5.6 % (0.0-3.0) H Basophils (%) (Auto) 0.7 % (0.0-2.0) 0.8 % (0.0-2.0) Differential Total Cells Counted 100 Neutrophils % (Manual) 76 % (45-75) H Lymphocytes % (Manual) 16 % (20-45) L Monocytes % (Manual) 7 % (1-10) Eosinophils % (Manual) 1 % (0-3) Basophils % (Manual) 0 % (0-2) Band Neutrophils 0 % (0-8) Platelet Estimate Adequate Platelet Morphology Normal Hypochromasia 1+ Anisocytosis 1+ Erythrocyte Sedimentation Rate 43 MM/HR (0-42) H 48 MM/HR (0-42) H Reticulocyte Count 0.9 % (0.0-2.0) Prothrombin Time 12.1 SEC (9.30-11.50) H Prothromb Time International Ratio 1.2 (0.9-1.1) H Activated Partial Thromboplast Time 25 SEC (23-33) Iron Level 43 ug/dL (50-175) L Total Iron Binding Capacity 151 ug/dL (250-450) L Percent Iron Saturation 28 % (15-50) Unsaturated Iron Binding 108 ug/dL (112-346) L Lactate Dehydrogenase 309 U/L (81-234) H Vitamin B12 Level 1785 PG/ML (193-986) H Folate 8.1 NG/ML (3.1-17.5) Sodium Level 141 MMOL/L (136-145) Potassium Level 3.5 MMOL/L (3.5-5.1) Chloride Level 105 MMOL/L (98-107) Carbon Dioxide Level 27 MMOL/L (21-32) Anion Gap 9 mmol/L (5-15) Blood Urea Nitrogen 11 mg/dL (7-18) Creatinine 1.0 MG/DL (0.55-1.30) Estimat Glomerular Filtration Rate mL/min (>60) Glucose Level 104 MG/DL (74-106) Calcium Level 8.6 MG/DL (8.5-10.1) Phosphorus Level 2.1 MG/DL (2.5-4.9) L Magnesium Level 1.5 MG/DL (1.8-2.4) L Total Bilirubin 1.1 MG/DL (0.2-1.0) H Direct Bilirubin 0.5 MG/DL (0.0-0.3) H Aspartate Amino Transf (AST/SGOT) 141 U/L (15-37) H Alanine Aminotransferase (ALT/SGPT) 65 U/L (12-78) Alkaline Phosphatase 426 U/L (46-116) H C-Reactive Protein, Quantitative 10.4 mg/dL (0.00-0.90) H Total Protein 6.4 G/DL (6.4-8.2) Albumin 2.6 G/DL (3.4-5.0) L Globulin 3.8 g/dL Albumin/Globulin Ratio 0.7 (1.0-2.7) L Current Medications Medications (Trade) Dose Ordered Sig/Charlene Route PRN Reason Start Time Stop Time Status Last Admin Dose Admin Acetaminophen (Tylenol) 650 mg Q4H PRN ORAL Fever/Headache/Mild Pain 12/20/16 17:00 01/19/17 16:59 Albuterol/ Ipratropium (Albuterol/ Ipratropium) 3 ml Q4H PRN HHN Shortness of Breath 12/20/16 17:00 12/24/16 16:59 Cefepime HCl 1 gm/ Dextrose 55 ml @ 110 mls/hr DAILY@1800 IVPB 12/20/16 18:00 12/27/16 17:59 12/21/16 17:40 Heparin Sodium (Porcine) (Heparin 5000 units/ml) 5,000 units EVERY 12 HOURS SUBQ 12/20/16 21:00 01/19/17 08:59 12/21/16 21:55 Metoprolol Tartrate (Lopressor) 25 mg EVERY 12 HOURS ORAL 12/20/16 21:00 01/19/17 10:14 12/21/16 21:51 Morphine Sulfate (Morphine Sulfate) 4 mg Q4H PRN IVP Severe Pain (Pain Scale 7-10) 12/20/16 17:00 12/27/16 08:59 12/21/16 12:01 Nitroglycerin (Ntg) 0.4 mg Q5M PRN SL Chest Pain 12/20/16 16:30 01/18/17 21:44 Ondansetron HCl (Zofran) 4 mg Q6H PRN IVP Nausea & Vomiting 12/20/16 17:00 01/18/17 16:59 Polyethylene Glycol (Miralax) 17 gm DAILYPRN PRN ORAL Constipation 12/20/16 17:00 01/18/17 16:59 Quetiapine Fumarate (SEROquel) 12.5 mg EVERY 4 HOURS PRN ORAL agitation 12/20/16 22:00 01/19/17 21:59 Temazepam (Restoril) 15 mg HSPRN PRN ORAL Insomnia 12/20/16 17:00 12/26/16 16:59 12/20/16 21:53 CARROLL QUAN Dec 22, 2016 10:13
[2016-12-22] MEDS: Metoprolol 25mg tab ORAL SCH ×2 (10:39→20:36)
[2016-12-22] MEDS: Heparin 5000 units/ml inj SUBQ SCH ×3 (10:44→21:16)
--- NOTE | 2016-12-22 11:46 | Diagnostic Imaging Report ---
Indication: Abnormal liver function tests, abdominal pain Technique: Santillan-scale and duplex images of the upper abdomen were obtained Comparison: None Findings: Gallbladder demonstrates posterior echogenic structure adjacent to the dependent wall which measures 4.3 x 1.4 cm. This is non-mobile. No definite gallstones. No gallbladder wall is upper limits of normal in thickness. Sonographic Mondragon's sign is negative. Common bile duct measures 11.6 mm in diameter. There is a suggestion of a stent within the common bile duct. There is mild intrahepatic biliary ductal dilatation.. Liver demonstrates multiple mixed nodules scattered throughout parenchyma. There are also a few small hepatic cysts Portal vein and hepatic veins are patent. There is a hypoechoic 2.8 cm mass within the javier hepatis adjacent to the common bile duct. No definite pancreatic mass, although the pancreatic head is suboptimally visualized. Spleen is unremarkable. Left kidney measures 10.2 cm in length. Right kidney measures 10.5 cm length. Both kidneys demonstrate equivocally borderline increased echogenicity. There is no hydronephrosis. There are bilateral renal cysts . Non-aneurysmal abdominal aorta . Impression: Multiple liver masses. This is concerning for metastatic malignancy. Correlation with clinical history is recommended There is what appears to be an endobiliary stent. There is biliary ductal dilatation despite this. Correlation with liver function tests is recommended. Correlation with surgical history is recommended. MRCP may be useful for further evaluation 4.2-1.4 cm echogenic structure adjacent to the gallbladder wall. Possibly a focus of tumefactive sludge, but gallbladder wall neoplasm is also a possibility. No definite gallstones Borderline gallbladder wall thickening, nonspecific as regards etiology 2.8 cm mass in the javier hepatis, likely representing lymphadenopathy Equivocal slight increased renal echogenicity, could indicate medical renal disease. Negative for hydronephrosis Incidental finding hepatic and bilateral renal cysts
[2016-12-22 12:00] VITALS: BP 129/88
[2016-12-22 12:51] LABS: OTHERS PATHOLOGIST COMMENT
[2016-12-22] MEDS: cefTRIAXone 1 GM in D5W 55 ML IVPB SCH (12:55)
[2016-12-22 16:00] VITALS: BP 155/76
[2016-12-22] MEDS: Morphine Sulfate 4mg/ml Inj IVP PRN (17:07)
--- NOTE | 2016-12-22 18:06 | Pulmonology Progress Note ---
Assessment/Plan Problems: (1) Metastatic adenocarcinoma (2) Severe sepsis (3) Acute encephalopathy (4) UTI (urinary tract infection) (5) Pancreatic cancer (6) Anemia (7) DNR (do not resuscitate) (8) Port-a-cath in place Assessment/Plan still confused, check blood cultures ID evaluation appreciated check CEA anemia w/u ordered. LIver Ultrasound, Impression: Multiple liver masses. This is concerning for metastatic malignancy. will talk to daughter about Hospice care upon discharge home. Subjective ROS Limited/Unobtainable: No Constitutional: Reports: no symptoms HEENT: Repors: no symptoms Allergies: Coded Allergies: No Known Allergies (Unverified , 12/19/16) Objective Last 24 Hour Vital Signs Date Time Temp Pulse Resp B/P (MAP) Pulse Ox O2 Delivery O2 Flow Rate FiO2 12/22/16 16:00 97.5 75 18 155/76 97 Room Air 12/22/16 12:00 97.5 78 18 129/88 99 Nasal Cannula 12/22/16 10:39 88 135/80 12/22/16 08:00 97.3 85 19 149/89 96 Room Air 12/22/16 07:25 88 18 Room Air 21 12/22/16 07:25 Room Air 21 12/22/16 07:25 95 Room Air 21 12/22/16 04:00 98.2 76 18 135/76 93 Room Air 12/22/16 00:00 98.6 83 20 135/80 96 Room Air 12/21/16 21:51 99 149/72 12/21/16 20:00 Room Air 12/21/16 20:00 97 Room Air 12/21/16 20:00 85 18 Room Air 12/21/16 19:54 99 18 149/72 95 Room Air Intake and Output 12/22/16 12/23/16 19:00 07:00 Intake Total 175 ml Balance 175 ml Intake Oral 120 ml IV Total 55 ml General Appearance: WD/WN HEENT: normocephalic, atraumatic Respiratory/Chest: chest wall non-tender, lungs clear Breasts: no masses Cardiovascular: normal peripheral pulses Abdomen: normal bowel sounds, soft, non tender Neurologic/Psychiatric: mail opener II-XII grossly normal Microbiology Date/Time Source Procedure Growth Status 12/19/16 19:23 Urine,Clean Catch Urine Culture - Final Klebsiella Pneumoniae Complete Laboratory Tests 12/22/16 05:20: White Blood Count 10.5, Red Blood Count 3.68L, Hemoglobin 10.7L, Hematocrit 32.4L, Mean Corpuscular Volume 88, Mean Corpuscular Hemoglobin 29.2, Mean Corpuscular Hemoglobin Concent 33.1, Red Cell Distribution Width 16.2H, Platelet Count 247, Mean Platelet Volume 6.7, Neutrophils (%) (Auto) 59.7, Lymphocytes (%) (Auto) 24.7, Monocytes (%) (Auto) 9.3, Eosinophils (%) (Auto) 5.6H, Basophils (%) (Auto) 0.8, Erythrocyte Sedimentation Rate 48H, Sodium Level 141, Potassium Level 3.5, Chloride Level 105, Carbon Dioxide Level 27, Anion Gap 9, Blood Urea Nitrogen 11, Creatinine 1.0, Estimat Glomerular Filtration Rate , Glucose Level 104, Calcium Level 8.6, Phosphorus Level 2.1L, Magnesium Level 1.5L, Total Bilirubin 1.1H, Direct Bilirubin 0.5H, Aspartate Amino Transf (AST/SGOT) 141H, Alanine Aminotransferase (ALT/SGPT) 65, Alkaline Phosphatase 426H, C-Reactive Protein, Quantitative 10.4H, Total Protein 6.4, Albumin 2.6L, Globulin 3.8, Albumin/Globulin Ratio 0.7L Current Medications Medications (Trade) Dose Ordered Sig/Charlene Route PRN Reason Start Time Stop Time Status Last Admin Dose Admin Acetaminophen (Tylenol) 650 mg Q4H PRN ORAL Fever/Headache/Mild Pain 12/20/16 17:00 01/19/17 16:59 Albuterol/ Ipratropium (Albuterol/ Ipratropium) 3 ml Q4H PRN HHN Shortness of Breath 12/20/16 17:00 12/24/16 16:59 Ceftriaxone Sodium 1 gm/ Dextrose 55 ml @ 110 mls/hr Q24H IVPB 12/22/16 12:00 12/29/16 11:59 12/22/16 12:55 Chlorhexidine Gluconate (Dhara-Hex 2%) 1 applic DAILY@2000 TOPIC 12/22/16 20:00 01/21/17 19:59 Heparin Sodium (Porcine) (Heparin 5000 units/ml) 5,000 units EVERY 12 HOURS SUBQ 12/20/16 21:00 01/19/17 08:59 12/22/16 10:44 Magnesium Sulfate 100 ml @ 100 mls/hr Q1H IV 12/22/16 19:15 12/22/16 21:14 UNV Metoprolol Tartrate (Lopressor) 25 mg EVERY 12 HOURS ORAL 12/20/16 21:00 01/19/17 10:14 12/22/16 10:39 Morphine Sulfate (Morphine Sulfate) 4 mg Q4H PRN IVP Severe Pain (Pain Scale 7-10) 12/20/16 17:00 12/27/16 08:59 12/22/16 17:07 Nitroglycerin (Ntg) 0.4 mg Q5M PRN SL Chest Pain 12/20/16 16:30 01/18/17 21:44 Ondansetron HCl (Zofran) 4 mg Q6H PRN IVP Nausea & Vomiting 12/20/16 17:00 01/18/17 16:59 Polyethylene Glycol (Miralax) 17 gm DAILYPRN PRN ORAL Constipation 12/20/16 17:00 01/18/17 16:59 Quetiapine Fumarate (SEROquel) 12.5 mg EVERY 4 HOURS PRN ORAL agitation 12/20/16 22:00 01/19/17 21:59 Sodium Phosphate 20 mm/Sodium Chloride 281.6667 ml @ 46.9 mls/hr ONCE ONCE IV 12/22/16 19:15 12/23/16 01:15 UNV Temazepam (Restoril) 15 mg HSPRN PRN ORAL Insomnia 12/20/16 17:00 12/26/16 16:59 12/20/16 21:53 MARIOLA MAJOR Dec 22, 2016 18:06
[2016-12-22 20:00] VITALS: BP 155/78
[2016-12-22] MEDS: Dyna-Hex 2% Top Sol 2oz TOPIC SCH (20:00)
[2016-12-22] MEDS: Sodium Phosphate 20 MM in NS 275 ML IV ONE ×2 (20:45→23:29)
[2016-12-23] VITALS: BP 148/95
--- NOTE | 2016-12-23 07:36 | Pulmonology Progress Note ---
Assessment/Plan Assessment/Plan ASSESSMENT severe sepsis UTI with Klebsiella pancreatic Ca metastatic adenocarcinoma anemia of chronic disease/malignancy acute toxic metabolic encephalopathy 2 to disease process and metabolic derangement HTN elevated LFT/bili protein calorie malnutrition PLAN OF CARE MS floor abx ID follows urine cx + Klebsiella, blood cx negative mentals status improved abdominal US noted -with evidence of metastasis anemia w/up c/w anemia of chronic disease pain management DVT prophylaxis bowel regimen psych follows, Seroquel BP management with BB monitor LFT/bili, due to hepatobiliary disease/malignancy dietary supplements /Ensure DNR/DNI status dc plan with hospice services case discussed and evaluated by supervising physician Subjective Allergies: Coded Allergies: No Known Allergies (Unverified , 12/19/16) Subjective more awake and responsive , tolerated oral intake no SOB, no chest pain wants to go home Objective Last 24 Hour Vital Signs Date Time Temp Pulse Resp B/P (MAP) Pulse Ox O2 Delivery O2 Flow Rate FiO2 12/23/16 00:00 97.6 74 18 148/95 95 Room Air 12/22/16 20:36 67 155/78 12/22/16 20:00 96.8 67 18 155/78 95 Room Air 12/22/16 19:42 Room Air 12/22/16 19:42 86 18 Room Air 12/22/16 19:42 97 Room Air 12/22/16 16:00 97.5 75 18 155/76 97 Room Air 12/22/16 12:00 97.5 78 18 129/88 99 Nasal Cannula 12/22/16 10:39 88 135/80 12/22/16 08:00 97.3 85 19 149/89 96 Room Air 12/22/16 07:25 88 18 Room Air 21 12/22/16 07:25 Room Air 21 12/22/16 07:25 95 Room Air 21 General Appearance: no acute distress HEENT: normocephalic, atraumatic Respiratory/Chest: lungs clear, no respiratory distress Cardiovascular: normal rate, regular rhythm, no JVD, other - PAC R chest, intact Abdomen: normal bowel sounds, soft, non tender Extremities: no edema, pedal pulses normal Neurologic/Psychiatric: no motor/sensory deficits, alert, responsive Current Medications Medications (Trade) Dose Ordered Sig/Charlene Route PRN Reason Start Time Stop Time Status Last Admin Dose Admin Acetaminophen (Tylenol) 650 mg Q4H PRN ORAL Fever/Headache/Mild Pain 12/20/16 17:00 01/19/17 16:59 Albuterol/ Ipratropium (Albuterol/ Ipratropium) 3 ml Q4H PRN HHN Shortness of Breath 12/20/16 17:00 12/24/16 16:59 Ceftriaxone Sodium 1 gm/ Dextrose 55 ml @ 110 mls/hr Q24H IVPB 12/22/16 12:00 12/29/16 11:59 12/22/16 12:55 Chlorhexidine Gluconate (Dhara-Hex 2%) 1 applic DAILY@2000 TOPIC 12/22/16 20:00 01/21/17 19:59 Heparin Sodium (Porcine) (Heparin 5000 units/ml) 5,000 units EVERY 12 HOURS SUBQ 12/20/16 21:00 01/19/17 08:59 12/22/16 21:16 Metoprolol Tartrate (Lopressor) 25 mg EVERY 12 HOURS ORAL 12/20/16 21:00 01/19/17 10:14 12/22/16 20:36 Morphine Sulfate (Morphine Sulfate) 4 mg Q4H PRN IVP Severe Pain (Pain Scale 7-10) 12/20/16 17:00 12/27/16 08:59 12/22/16 17:07 Nitroglycerin (Ntg) 0.4 mg Q5M PRN SL Chest Pain 12/20/16 16:30 01/18/17 21:44 Ondansetron HCl (Zofran) 4 mg Q6H PRN IVP Nausea & Vomiting 12/20/16 17:00 01/18/17 16:59 Polyethylene Glycol (Miralax) 17 gm DAILYPRN PRN ORAL Constipation 12/20/16 17:00 01/18/17 16:59 Quetiapine Fumarate (SEROquel) 12.5 mg EVERY 4 HOURS PRN ORAL agitation 12/20/16 22:00 01/19/17 21:59 Temazepam (Restoril) 15 mg HSPRN PRN ORAL Insomnia 12/20/16 17:00 12/26/16 16:59 12/23/16 00:36 Sarahy Mead NP (Vanchtein) Dec 23, 2016 07:36
[2016-12-23 07:53] VITALS: BP 143/66
[2016-12-23] MEDS: Heparin 5000 units/ml inj SUBQ SCH ×2 (08:17→20:28)
[2016-12-23] MEDS: Metoprolol 25mg tab ORAL SCH ×2 (08:17→20:27)
[2016-12-23] MEDS ORDERED: Albuterol/Ipratropium 3ml neb HHN PRN (09:00)
[2016-12-23] MEDS: Morphine Sulfate 4mg/ml Inj IVP PRN ×2 (09:41→13:39)
[2016-12-23 11:15] VITALS: BP 140/66
[2016-12-23] MEDS: cefTRIAXone 1 GM in D5W 55 ML IVPB SCH (11:34)
--- NOTE | 2016-12-23 15:22 | Infectious Diseases Prog Note ---
Assessment/Plan Assessment/Plan ASSESSMENT: 81 y/o female with: // K.pneumoniae UTI // Sepsis SP // Leukocytosis SP // Fever SP // Liver masses / elevated LFTs - US: Multiple liver masses. This is concerning for metastatic malignancy. There is what appears to be an endobiliary stent. There is biliary ductal dilatation despite this. 4.2-1.4 cm echogenic structure adjacent to the gallbladder wall. Possibly a focus of tumefactive sludge, but gallbladder wall neoplasm is also a possibility. No definite gallstones. Borderline gallbladder wall thickening, nonspecific as regards etiology. 2.8 cm mass in the javier hepatis, likely representing lymphadenopathy // Acute on chronic encephalopathy, m/l septic r/o met - baseline dementia // h/o breast CA // Elevated ESR, CRP // NKDA // DNR PLAN: - continue rocephin d# 2 ( ABX d# 3 / 5 ). Ok to complete course with PO levaquin at discharge ( 12/22 SP cefepime d# 2 ) - f/u final cultures - monitor CBC, temperatures - monitor BMP - hospice Subjective Allergies: Coded Allergies: No Known Allergies (Unverified , 12/19/16) Subjective fevers resolved US noted, plan hospice Objective Vital Signs Last 24 Hour Vital Signs Date Time Temp Pulse Resp B/P (MAP) Pulse Ox O2 Delivery O2 Flow Rate FiO2 12/23/16 11:15 98.6 66 20 140/66 93 Room Air 12/23/16 08:17 80 143/66 12/23/16 07:53 97.3 80 18 143/66 97 Room Air 12/23/16 07:52 80 18 Room Air 12/23/16 07:52 Room Air 12/23/16 07:52 97 Room Air 12/23/16 00:00 97.6 74 18 148/95 95 Room Air 12/22/16 20:36 67 155/78 12/22/16 20:00 96.8 67 18 155/78 95 Room Air 12/22/16 19:42 Room Air 12/22/16 19:42 86 18 Room Air 12/22/16 19:42 97 Room Air 12/22/16 16:00 97.5 75 18 155/76 97 Room Air Height (Feet): 5 Height (Inches): 2.00 Weight (Pounds): 130 General Appearance: no acute distress Respiratory/Chest: no respiratory distress Cardiovascular: normal rate, regular rhythm Abdomen: normal bowel sounds, soft, non tender, non distended Current Medications Medications (Trade) Dose Ordered Sig/Charlene Route PRN Reason Start Time Stop Time Status Last Admin Dose Admin Acetaminophen (Tylenol) 650 mg Q4H PRN ORAL Fever/Headache/Mild Pain 12/20/16 17:00 01/19/17 16:59 Albuterol/ Ipratropium (Albuterol/ Ipratropium) 3 ml Q4H PRN HHN Shortness of Breath 12/23/16 09:00 12/27/16 08:59 Ceftriaxone Sodium 1 gm/ Dextrose 55 ml @ 110 mls/hr Q24H IVPB 12/22/16 12:00 12/29/16 11:59 12/23/16 11:34 Chlorhexidine Gluconate (Dhara-Hex 2%) 1 applic DAILY@2000 TOPIC 12/22/16 20:00 01/21/17 19:59 Heparin Sodium (Porcine) (Heparin 5000 units/ml) 5,000 units EVERY 12 HOURS SUBQ 12/20/16 21:00 01/19/17 08:59 12/22/16 21:16 Metoprolol Tartrate (Lopressor) 25 mg EVERY 12 HOURS ORAL 12/20/16 21:00 01/19/17 10:14 12/23/16 08:17 Morphine Sulfate (Morphine Sulfate) 4 mg Q4H PRN IVP Severe Pain (Pain Scale 7-10) 12/20/16 17:00 12/27/16 08:59 12/23/16 13:39 Nitroglycerin (Ntg) 0.4 mg Q5M PRN SL Chest Pain 12/20/16 16:30 01/18/17 21:44 Ondansetron HCl (Zofran) 4 mg Q6H PRN IVP Nausea & Vomiting 12/20/16 17:00 01/18/17 16:59 12/23/16 09:42 Polyethylene Glycol (Miralax) 17 gm DAILYPRN PRN ORAL Constipation 12/20/16 17:00 01/18/17 16:59 12/23/16 08:17 Quetiapine Fumarate (SEROquel) 12.5 mg EVERY 4 HOURS PRN ORAL agitation 12/20/16 22:00 01/19/17 21:59 Temazepam (Restoril) 15 mg HSPRN PRN ORAL Insomnia 12/20/16 17:00 12/26/16 16:59 12/23/16 00:36 CARROLL QUAN Dec 23, 2016 15:22
[2016-12-23 16:00] VITALS: BP 134/74
--- NOTE | 2016-12-23 18:23 | General Progress Note ---
Assessment/Plan Status: stable Assessment/Plan cognitive impairment agitation -the pt may not leave [facility] -the pt next of erika is her children, son and daughter Subjective Neurologic/Psychiatric: Reports: anxiety, depressed, emotional problems Allergies: Coded Allergies: No Known Allergies (Unverified , 12/19/16) Objective Last 24 Hour Vital Signs Date Time Temp Pulse Resp B/P (MAP) Pulse Ox O2 Delivery O2 Flow Rate FiO2 12/23/16 16:00 97.9 78 20 134/74 94 Room Air 12/23/16 11:15 98.6 66 20 140/66 93 Room Air 12/23/16 08:17 80 143/66 12/23/16 07:53 97.3 80 18 143/66 97 Room Air 12/23/16 07:52 80 18 Room Air 12/23/16 07:52 Room Air 12/23/16 07:52 97 Room Air 12/23/16 00:00 97.6 74 18 148/95 95 Room Air 12/22/16 20:36 67 155/78 12/22/16 20:00 96.8 67 18 155/78 95 Room Air 12/22/16 19:42 Room Air 12/22/16 19:42 86 18 Room Air 12/22/16 19:42 97 Room Air Intake and Output 12/23/16 12/24/16 19:00 07:00 Intake Total 415 ml Balance 415 ml Intake Oral 360 ml IV Total 55 ml # Voids 2 Height (Feet): 5 Height (Inches): 2.00 Weight (Pounds): 130 General Appearance: no apparent distress, alert Neurologic: alert, responsive, depressed affect Melchor Villalobos M.D. Dec 23, 2016 18:23
--- NOTE | 2016-12-23 18:24 | Geriatric Progress Note ---
Subjective Interval Events 12/22/16 Mood/Memory: Reports: prior hx, anxiety, depressed feelings, emotional problems Geriatric Geriatric Last 24 Hour Vital Signs Date Time Temp Pulse Resp B/P (MAP) Pulse Ox O2 Delivery O2 Flow Rate FiO2 12/23/16 16:00 97.9 78 20 134/74 94 Room Air 12/23/16 11:15 98.6 66 20 140/66 93 Room Air 12/23/16 08:17 80 143/66 12/23/16 07:53 97.3 80 18 143/66 97 Room Air 12/23/16 07:52 80 18 Room Air 12/23/16 07:52 Room Air 12/23/16 07:52 97 Room Air 12/23/16 00:00 97.6 74 18 148/95 95 Room Air 12/22/16 20:36 67 155/78 12/22/16 20:00 96.8 67 18 155/78 95 Room Air 12/22/16 19:42 Room Air 12/22/16 19:42 86 18 Room Air 12/22/16 19:42 97 Room Air Intake and Output 12/23/16 12/24/16 19:00 07:00 Intake Total 415 ml Balance 415 ml Intake Oral 360 ml IV Total 55 ml # Voids 2 Current Medications Medications (Trade) Dose Ordered Sig/Charlene Route PRN Reason Start Time Stop Time Status Last Admin Dose Admin Acetaminophen (Tylenol) 650 mg Q4H PRN ORAL Fever/Headache/Mild Pain 12/20/16 17:00 01/19/17 16:59 Albuterol/ Ipratropium (Albuterol/ Ipratropium) 3 ml Q4H PRN HHN Shortness of Breath 12/23/16 09:00 12/27/16 08:59 Ceftriaxone Sodium 1 gm/ Dextrose 55 ml @ 110 mls/hr Q24H IVPB 12/22/16 12:00 12/29/16 11:59 12/23/16 11:34 Chlorhexidine Gluconate (Dhara-Hex 2%) 1 applic DAILY@2000 TOPIC 12/22/16 20:00 01/21/17 19:59 Heparin Sodium (Porcine) (Heparin 5000 units/ml) 5,000 units EVERY 12 HOURS SUBQ 12/20/16 21:00 01/19/17 08:59 12/22/16 21:16 Metoprolol Tartrate (Lopressor) 25 mg EVERY 12 HOURS ORAL 12/20/16 21:00 01/19/17 10:14 12/23/16 08:17 Morphine Sulfate (Morphine Sulfate) 4 mg Q4H PRN IVP Severe Pain (Pain Scale 7-10) 12/20/16 17:00 12/27/16 08:59 12/23/16 13:39 Nitroglycerin (Ntg) 0.4 mg Q5M PRN SL Chest Pain 12/20/16 16:30 01/18/17 21:44 Ondansetron HCl (Zofran) 4 mg Q6H PRN IVP Nausea & Vomiting 12/20/16 17:00 01/18/17 16:59 12/23/16 09:42 Polyethylene Glycol (Miralax) 17 gm DAILYPRN PRN ORAL Constipation 12/20/16 17:00 01/18/17 16:59 12/23/16 08:17 Quetiapine Fumarate (SEROquel) 12.5 mg EVERY 4 HOURS PRN ORAL agitation 12/20/16 22:00 01/19/17 21:59 Temazepam (Restoril) 15 mg HSPRN PRN ORAL Insomnia 12/20/16 17:00 12/26/16 16:59 12/23/16 00:36 Height (Feet): 5 Height (Inches): 2.00 Weight (Pounds): 130 General Appearance: well appearing, no apparent distress, alert Melchor Villalobos M.D. Dec 23, 2016 18:24
[2016-12-23 20:00] VITALS: BP 142/72
[2016-12-23] MEDS: Dyna-Hex 2% Top Sol 2oz TOPIC SCH (20:27)
[2016-12-23] MEDS ORDERED: Tubing IV Secondary IV ONE (21:05)
[2016-12-24 00:18] VITALS: BP 134/78
[2016-12-24 04:00] VITALS: BP 116/72
[2016-12-24] MEDS: Morphine Sulfate 4mg/ml Inj IVP PRN (05:35)
[2016-12-24 05:54] LABS: BASOPHILS % (AUTO) 0.7 % (0.0-2.0); EOSINOPHILS % (AUTO) 6.3 % (0.0-3.0); LYMPHOCYTES % (AUTO) 25.2 % (20.0-45.0); MEAN CORPUSCULAR HGB CONC 33.5 G/DL (32.0-36.0); MEAN CORPUSCULAR VOLUME 90 FL (80-99); MEAN PLATELET VOLUME 6.6 FL (6.5-10.1); NEUTROPHILS % (AUTO) 57.9 % (45.0-75.0); PLATELET COUNT 243 K/UL (150-450); RED CELL DISTRIBUTION WIDTH 16.3 % (11.6-14.8); WHITE BLOOD COUNT 10.3 K/UL (4.8-10.8)
[2016-12-24 06:37] LABS: ANION GAP 7 mmol/L (5-15); CALCIUM 8.6 MG/DL (8.5-10.1); CARBON DIOXIDE 28 MMOL/L (21-32); CHLORIDE 104 MMOL/L (98-107); MAGNESIUM 1.8 MG/DL (1.8-2.4); PHOSPHORUS 3.3 MG/DL (2.5-4.9); POTASSIUM 3.3 MMOL/L (3.5-5.1); SODIUM 139 MMOL/L (136-145)
[2016-12-24 07:40] VITALS: BP 134/70
[2016-12-24 08:09] VITALS: BP 134/70
[2016-12-24] MEDS: Metoprolol 25mg tab ORAL SCH (08:09)
[2016-12-24] MEDS: Heparin 5000 units/ml inj SUBQ SCH (08:15)
--- NOTE | 2016-12-24 08:42 | Pulmonology Progress Note ---
Assessment/Plan Assessment/Plan ASSESSMENT severe sepsis UTI with Klebsiella pancreatic Ca metastatic adenocarcinoma anemia of chronic disease/malignancy acute toxic metabolic encephalopathy 2 to disease process and metabolic derangement HTN elevated LFT/bili protein calorie malnutrition hypokalemia PLAN OF CARE MS floor abx ID follows urine cx + Klebsiella, blood cx negative mental status improved abdominal US noted -with evidence of metastasis anemia w/up c/w anemia of chronic disease pain management DVT prophylaxis bowel regimen psych follows, Seroquel BP management with BB monitor LFT/bili, due to hepatobiliary disease/malignancy dietary supplements /Ensure DNR/DNI status dc today with hospice services script for abx provided replace K prior to dc case discussed and evaluated by supervising physician Subjective Allergies: Coded Allergies: No Known Allergies (Unverified , 12/19/16) Subjective awake and responsive , tolerated oral intake no SOB, no chest pain daughter at the bedside Objective Last 24 Hour Vital Signs Date Time Temp Pulse Resp B/P (MAP) Pulse Ox O2 Delivery O2 Flow Rate FiO2 12/24/16 08:09 73 134/70 12/24/16 07:40 98.6 73 20 134/70 94 Room Air 12/24/16 06:05 96.8 12/24/16 04:00 96.8 75 20 116/72 93 Room Air 12/24/16 00:18 97.5 67 20 134/78 100 Room Air 12/23/16 23:24 77 18 Room Air 21 12/23/16 23:24 97 Room Air 21 12/23/16 23:24 Room Air 21 12/23/16 20:27 66 142/72 12/23/16 20:00 97.9 66 18 142/72 100 Room Air 12/23/16 16:00 97.9 78 20 134/74 94 Room Air 12/23/16 11:15 98.6 66 20 140/66 93 Room Air Objective General Appearance: no acute distress HEENT: normocephalic, atraumatic Respiratory/Chest: lungs clear, no respiratory distress Cardiovascular: normal rate, regular rhythm, no JVD, PAC R chest, intact Abdomen: normal bowel sounds, soft, non tender Extremities: no edema, pedal pulses normal Neurologic/Psychiatric: no motor/sensory deficits, alert, responsive Laboratory Tests 12/24/16 05:30: White Blood Count 10.3, Red Blood Count 3.40L, Hemoglobin 10.2L, Hematocrit 30.4L, Mean Corpuscular Volume 90, Mean Corpuscular Hemoglobin 30.0, Mean Corpuscular Hemoglobin Concent 33.5, Red Cell Distribution Width 16.3H, Platelet Count 243, Mean Platelet Volume 6.6, Neutrophils (%) (Auto) 57.9, Lymphocytes (%) (Auto) 25.2, Monocytes (%) (Auto) 10.0, Eosinophils (%) (Auto) 6.3H, Basophils (%) (Auto) 0.7, Sodium Level 139, Potassium Level 3.3L, Chloride Level 104, Carbon Dioxide Level 28, Anion Gap 7, Blood Urea Nitrogen 9 , Creatinine 1.0, Estimat Glomerular Filtration Rate , Glucose Level 126H, Calcium Level 8.6, Phosphorus Level 3.3, Magnesium Level 1.8 Current Medications Medications (Trade) Dose Ordered Sig/Charlene Route PRN Reason Start Time Stop Time Status Last Admin Dose Admin Acetaminophen (Tylenol) 650 mg Q4H PRN ORAL Fever/Headache/Mild Pain 12/20/16 17:00 01/19/17 16:59 Albuterol/ Ipratropium (Albuterol/ Ipratropium) 3 ml Q4H PRN HHN Shortness of Breath 12/23/16 09:00 12/27/16 08:59 Ceftriaxone Sodium 1 gm/ Dextrose 55 ml @ 110 mls/hr Q24H IVPB 12/22/16 12:00 12/29/16 11:59 12/23/16 11:34 Chlorhexidine Gluconate (Dhara-Hex 2%) 1 applic DAILY@2000 TOPIC 12/22/16 20:00 01/21/17 19:59 12/23/16 20:27 Escitalopram Oxalate (Lexapro) 10 mg DAILY ORAL 12/24/16 09:00 01/23/17 08:59 12/24/16 08:09 Heparin Sodium (Porcine) (Heparin 5000 units/ml) 5,000 units EVERY 12 HOURS SUBQ 12/20/16 21:00 01/19/17 08:59 12/24/16 08:15 Metoprolol Tartrate (Lopressor) 25 mg EVERY 12 HOURS ORAL 12/20/16 21:00 01/19/17 10:14 12/24/16 08:09 Morphine Sulfate (Morphine Sulfate) 4 mg Q4H PRN IVP Severe Pain (Pain Scale 7-10) 12/20/16 17:00 12/27/16 08:59 12/24/16 05:35 Nitroglycerin (Ntg) 0.4 mg Q5M PRN SL Chest Pain 12/20/16 16:30 01/18/17 21:44 Ondansetron HCl (Zofran) 4 mg Q6H PRN IVP Nausea & Vomiting 12/20/16 17:00 01/18/17 16:59 12/23/16 09:42 Polyethylene Glycol (Miralax) 17 gm DAILYPRN PRN ORAL Constipation 12/20/16 17:00 01/18/17 16:59 12/23/16 08:17 Quetiapine Fumarate (SEROquel) 12.5 mg EVERY 4 HOURS PRN ORAL agitation 12/20/16 22:00 01/19/17 21:59 12/24/16 08:09 Temazepam (Restoril) 15 mg HSPRN PRN ORAL Insomnia 12/20/16 17:00 12/26/16 16:59 12/24/16 01:10 [place] [facility]redondoLong [facility] CenterSarahy Coelho NP Dec 24, 2016 08:42
[2016-12-24] MEDS ORDERED: LEVAQUIN500 MG ORAL (08:43)
[2016-12-24] MEDS ORDERED: KCl 10% 40mEq/30ml liquid NG ONE (10:30)
--- NOTE | 2016-12-25 23:56 | General Progress Note ---
Assessment/Plan Assessment/Plan cognitive impairment agitation -the pt may not leave [facility] -the pt next of erika is her children, son and daughter Subjective Date patient seen: Dec 24, 2016 Allergies: Coded Allergies: No Known Allergies (Unverified , 12/19/16) Objective Height (Feet): 5 Height (Inches): 2.00 Weight (Pounds): 130 Melchor Villalobos M.D. Dec 25, 2016 23:56
--- NOTE | 2016-12-26 13:46 | Discharge Summary ---
Discharge Summary Hospital Course Date of Admission Dec 19, 2016 at 17:52 Date of Discharge Dec 24, 2016 at 09:30 Admitting Diagnosis SEPSIS HPI Tracy Maher is a 81 year old female who was admitted on Dec 19, 2016 at 17: 52 for Sepsis Hospital Course dc summary #[id number] Discharge Medications New Medications: Levofloxacin* (Levaquin*) 500 Mg Tablet 500 MG ORAL DAILY, #2 TAB Continued Medications: Metoprolol Tartrate* (Metoprolol Tartrate*) 25 Mg Tablet 25 MG ORAL EVERY 12 HOURS, TAB Tramadol Hcl* (Ultram*) 50 Mg Tablet 50 MG ORAL TID for For Pain, #30 TAB 0 Refills Discharge Condition Upon Discharge: stable Discharge Disposition Patient was discharged to Home with hospcie services Discharge Diagnoses: [place] (Kwame)Sarahy NP Dec 26, 2016 13:46
--- NOTE | 2016-12-26 19:15 | Discharge Summary 2 SIG ---
DATE OF ADMISSION: 12/19/2016 DATE OF DISCHARGE: 12/24/2016 REASON FOR ADMISSION: 81-year-old female with past medical history of stage 5 pancreatic cancer and right-sided chemo port placed about month ago presented with fever for three days. The patient looked lethargic and weak, fever-103. She denied cough or nausea. She did have two episodes of diarrhea per day for the last 2 days. She was tachycardic, tachypneic. Urinalysis with evidence of UTI. The patient was DNR/DNI status. Septic workup was initiated in the emergency room. The patient was started on fluid resuscitation, pancultured, and started on empiric antibiotics. Patient was admitted to telemetry for severe sepsis, UTI, pancreatic cancer. HOSPITAL COURSE: The patient was admitted. The patient was on the IV fluids and empiric antibiotics. ID consult was requested. Urine culture revealed Klebsiella. Blood cultures were negative. The patient was on IV antibiotic while in the hospital , which changed to oral upon discharge as per ID recommendation. Mental status slowly improved as the patient was treated with antibiotics and hydrated. Abdominal ultrasound revealed multiple liver masses with concern for metastatic malignancy. There appears to be the biliary stent with biliary ductal dilatation despite it. A 4.2 x 1.4 cm echogenic structure adjacent to the gallbladder wall, possibly a focus of tumefactive sludge but gallbladder wall neoplasm was also possibility. No definite gallstone. A 2.8 cm mass in the javier hepatitis likely representing lymphadenopathy. Slightly increased renal echogenicity possibly indicative of medical renal disease. Negative for hydronephrosis. Anemia workup revealed anemia of chronic disease. Pain management was provided. DVT prophylaxis was provided. Bowel regimen was instituted. Psychiatrist seen and evaluated the patient. The patient was started on Seroquel. Blood pressure was managed with beta-vicente, and was stable. LFT and bilirubin were closely monitored , elevated due to the hepatobiliary disease/malignancy. Dietary supplements were provided as per dietitian supplements. Electrolytes were replaced. Potassium was replaced prior to discharge. Family requested hospice services. The patient was with DNR /DNI status. Hospice services were arranged. Prescription for antibiotic provided. The patient was stable for discharge home with home health services. FINAL DIAGNOSES: 1. Severe sepsis secondary to urinary tract infection. 2. Urinary tract infection with Klebsiella. 3. Pancreatic cancer. 4. Metastatic adenocarcinoma. 5. Anemia of chronic disease/malignancy. 6. Acute toxic metabolic encephalopathy secondary to disease process and metabolic derangement. 7. Hypertension. 8. Elevated liver function test 9. Protein-calorie malnutrition. 10. Hypokalemia. DISCHARGE MEDICATIONS: See medication reconciliation list. DISCHARGE INSTRUCTIONS: The patient was discharged home with hospice services. Bj Sexton M.D. Sarahy ArredondoAlbany Medical CenterKim peck DR: WAQAS JOB#: [id number] CC: MIKA
== END 2016-12-24 09:30 | disposition hospice, home (50) | DRG 871 ==
LOC: EDBD 17:09 → EMR 17:48 → 2E 17:52 → EDBEDREQ 20:26 → 4W 12-20 16:05 → 4E 12-23 17:08
DX: A41.9 Sepsis, unspecified organism (principal); G93.41 Metabolic encephalopathy; G92 Toxic encephalopathy; E46 Unspecified protein-calorie malnutrition; C79.9 Secondary malignant neoplasm of unspecified site; D63.0 Anemia in neoplastic disease; C25.9 Malignant neoplasm of pancreas, unspecified; N39.0 Urinary tract infection, site not specified; F03.90 Unspecified dementia, unspecified severity, without behavioral disturbance, psychotic disturbance, mood disturbance, and anxiety; Z66 Do not resuscitate; R65.20 Severe sepsis without septic shock; B96.1 Klebsiella pneumoniae [K. pneumoniae] as the cause of diseases classified elsewhere; E87.6 Hypokalemia; D63.8 Anemia in other chronic diseases classified elsewhere; I10 Essential (primary) hypertension; R79.89 Other specified abnormal findings of blood chemistry; Z85.3 Personal history of malignant neoplasm of breast; R45.1 Restlessness and agitation
CPT/HCPCS: 36415; 71010; 76700; 80048; 80053; 81003; 82248; 82553; 82607; 82746; 83540; 83550; 83605; 83615; 83735; 83880; 84100; 84484; 85007; 85025; 85044; 85060; 85610; 85651; 85730; 86140; 87040; 87086; 87181; 93005; 94664; 94760; J2405

== ENCOUNTER 2017-01-05 18:10 | Inpatient (IN) | payer MEDICARE, BC ==
[~2017-01-05] VITALS: Ht 154.9 cm; Wt 49.0 kg
[~2017-01-05 18:10] MED LIST: LEVAQUIN500 MG ORAL; METOPROLOL TART25 MG ORAL; TRAMADOL HCL50 MG ORAL
--- NOTE | 2017-01-05 18:31 | Emergency Room Report ---
History of Present Illness General Chief Complaint: Dyspnea/Respdistress Source: Patient, Medical Record, EMS Present Illness HPI 81-year-old female history of stage V pancreatic cancer, right-sided chemotherapy port, recent discharged from the hospital this month (at that time was DNR/DNI), presenting with altered mental status. History is obtained by EMS , patient coming from home, states that she is more confused than normal Currently patient is maintaining eye contact, slightly following commands, however very lethargic and unable to provide history at this time patients daughter states she has not been eating/drinking x 2 days. no n/v/d Allergies: Coded Allergies: No Known Allergies (Unverified , 12/19/16) Patient History Past Medical History: see triage record Past Surgical History: none Pertinent Family History: none Reviewed Nursing Documentation: PMH: Agreed, PSxH: Agreed Nursing Documentation-PMH Hx Cardiac Problems: No Hx Hypertension: No Hx Pacemaker: No Hx Asthma: No Hx COPD: No Hx Diabetes: No Hx Cancer: Yes - PANCREAS Hx Gastrointestinal Problems: No Hx Dialysis: No Hx Neurological Problems: Yes - DEMENTIA Hx Cerebrovascular Accident: No Hx Seizures: No Review of Systems All Other Systems: limited - lethargic Physical Exam Vital Signs Date Time Temp Pulse Resp B/P (MAP) Pulse Ox O2 Delivery O2 Flow Rate FiO2 01/05/17 18:02 115 20 147/70 100 Non-Rebreather 15.0 Sp02 EP Interpretation: abnormal - 92 on RA, 100 on O2 General Appearance: other - lethargic, tired, not in resp distress, Chronically Ill Head: normocephalic, atraumatic Eyes: bilateral eye normal inspection, bilateral eye PERRL, bilateral eye EOMI ENT: normal ENT inspection, normal pharynx, normal voice, moist mucus membranes Neck: normal inspection, full range of motion, supple Respiratory: normal inspection, lungs clear, normal breath sounds, no respiratory distress, no retraction, no wheezing, speaking full sentences, chest symmetrical Cardiovascular #1: normal peripheral pulses, regular rate, rhythm, no edema, tachycardia, other - +R sided chemo port Cardiovascular #2: 2+ radial (R), 2+ radial (L) Gastrointestinal: normal inspection, non tender, soft, non-distended, no guarding Musculoskeletal: normal inspection, back normal, normal range of motion, non- tender Neurologic: other - very lethargic, eyes open, moves spont, but too weak to follow neuro exam Psychiatric: other - lethargic Skin: normal inspection, normal color, no rash, warm/dry, well hydrated, normal turgor Procedures Critical Care Time Critical Care Time 40 minutes of CC time 81-year-old female, altered mental status VS: Tachycardic, febrile Airway patent. Not hypoxic. PLAN: IV access, labs, lactate, troponin, Blood/Urine Cx, Abx, IVF Anticipate admission to Tele vs. PEDRO CC time also includes review of labs, review of EMR, discussion with family and paperwork from SNF, d/w hospitalist CC could include dosing of pressors, additional Abx CC time does not include procedures Medical Decision Making Diagnostic Impression: Primary Impression: Severe sepsis Additional Impressions: Pancreatic cancer UTI (urinary tract infection) ER Course 81-year-old female, altered mental status DDX: Sepsis 2/2 UTI, PNA, bacteremia, will also consider intra-abdominal pathology such as colitis / diverticulitis / acalculous cholecystitis if no other course found but at this time abdomen soft, NT, ND. Electrolyte disturbance, dehydration, ACS Plan: Airway patent IV access - 30cc/kg bolus NS Obtain labs including cbc, bmp, blood culture, blood gas, lactate, ua, ucx CXR EKG Broad spectrum ABX Sepsis Re-examination Time: 7:30pm VS: Temp 98 HR 100 and BP 144/50 RR 13 CVS: RRR Respiratory: Lungs clear bilaterally Peripheral pulses: 2+ radial Capillary refill: <2 seconds Skin exam: warm, dry, no rash, not mottled ER course: Pt's airway remains patent, supplemental O2 provided by NC Patient given NS at 30cc/kg bolus Patient's BP has remained stable with MAP > 65 Given broad spectrum abx - vancomycin and zosyn [place] Tylenol given Disposition: Patient will admitted to telemetry Patient requires close monitoring of respiratory/hemodynamic status and continuation of IV antibiotics. D/W Hospitalist Patient was signed out to Dr Sexton, who has accepted patient for admission. Please note that this Emergency Department Report was dictated using [employer] service [employer] technology software, occasionally this can lead to erroneous entry secondary to interpretation by the dictation equipment. EKG Diagnostic Results EP Interpretation: Yes Rate: Tachycardic Rhythm: NSR ST Segments: No acute changes ST depression noted in V4 and V5 ASA given to patient: No Rhythm Strip EP Interpretation: Yes Rate: 113 Rhythm: NSR, no PVCs, no ectopy Chest X-ray CXR: Ordered: Yes 1 view Indication: Altered mental status EP interpretation: Yes Interpretation: No consolidation, no effusion, no PTX, no acute cardiopulmonary disease Impression: No acute disease Electronically signed by Basilia Newton MD Laboratory Tests Test 01/05/17 18:20 01/05/17 18:39 White Blood Count 19.4 K/UL (4.8-10.8) H Red Blood Count 3.70 M/UL (4.20-5.40) L Hemoglobin 10.4 G/DL (12.0-16.0) L Hematocrit 33.0 % (37.0-47.0) L Mean Corpuscular Volume 89 FL (80-99) Mean Corpuscular Hemoglobin 28.1 PG (27.0-31.0) Mean Corpuscular Hemoglobin Concent 31.6 G/DL (32.0-36.0) L Red Cell Distribution Width 16.7 % (11.6-14.8) H Platelet Count 200 K/UL (150-450) Mean Platelet Volume 7.0 FL (6.5-10.1) Neutrophils (%) (Auto) % (45.0-75.0) Lymphocytes (%) (Auto) % (20.0-45.0) Monocytes (%) (Auto) % (1.0-10.0) Eosinophils (%) (Auto) % (0.0-3.0) Basophils (%) (Auto) % (0.0-2.0) Neutrophils % (Manual) Pending Lymphocytes % (Manual) Pending Platelet Estimate Pending Platelet Morphology Pending Prothrombin Time 18.4 SEC (9.30-11.50) H Prothrombin Time INR 1.7 (0.9-1.1) H PTT 26 SEC (23-33) Urine Color Brown Urine Appearance Clear Urine pH 5 (4.5-8.0) Urine Specific [place] 1.020 (1.005-1.035) Urine Protein 2+ (NEGATIVE) H Urine Glucose (UA) Negative (NEGATIVE) Urine Ketones 2+ (NEGATIVE) H Urine Occult Blood 1+ (NEGATIVE) H Urine Nitrite Positive (NEGATIVE) H Urine Bilirubin 2+ (NEGATIVE) H Urine Ictotest Positive Urine Urobilinogen 12 MG/DL (0.0-1.0) H Urine Leukocyte Esterase 1+ (NEGATIVE) H Urine RBC 2-4 /HPF (0 - 2) H Urine WBC 5-10 /HPF (0 - 2) H Urine Squamous Epithelial Cells Few /LPF (NONE/OCC) Urine Amorphous Sediment Few /LPF (NONE) H Urine Bacteria Moderate /HPF (NONE) H Sodium Level 145 MMOL/L (136-145) Potassium Level 3.2 MMOL/L (3.5-5.1) L Chloride Level 105 MMOL/L (98-107) Carbon Dioxide Level 29 MMOL/L (21-32) Anion Gap 11 mmol/L (5-15) Blood Urea Nitrogen 28 mg/dL (7-18) H Creatinine 1.4 MG/DL (0.55-1.30) H Estimate Glomerular Filtration Rate mL/min (>60) Glucose Level 126 MG/DL (74-106) H Lactic Acid Level 1.30 mmol/L (0.66-2.22) Calcium Level 8.8 MG/DL (8.5-10.1) Total Bilirubin 3.7 MG/DL (0.2-1.0) H Direct Bilirubin 3.0 MG/DL (0.0-0.3) H Aspartate Amino Transferase (AST) 120 U/L (15-37) H Alanine Aminotransferase (ALT) 46 U/L (12-78) Alkaline Phosphatase 861 U/L (46-116) H Total Creatine Kinase 140 U/L (26-308) Troponin I 0.000 ng/mL (0.000-0.056) Pro-B-Type Natriuretic Peptide 1471 pg/mL (0-125) H Total Protein 6.9 G/DL (6.4-8.2) Albumin 2.4 G/DL (3.4-5.0) L Globulin 4.5 g/dL Albumin/Globulin Ratio 0.5 (1.0-2.7) L Arterial Blood pH 7.477 (7.350-7.450) Arterial Blood Partial Pressure CO2 35.7 mmHg (35.0-45.0) Arterial Blood Partial Pressure O2 102.6 mmHg (75.0-100.0) H Arterial Blood HCO3 25.8 mmol/L (22.0-26.0) Arterial Blood Oxygen Saturation 97.4 % (92.0-98.0) Arterial Blood Base Excess 2.4 Leno Test Positive Last Vital Signs Date Time Temp Pulse Resp B/P (MAP) Pulse Ox O2 Delivery O2 Flow Rate FiO2 01/05/17 18:02 115 20 147/70 100 Non-Rebreather 15.0 Disposition: ADMITTED INPATIENT Condition: Serious RetinoBasilia M.D. Jan 05, 2017 18:31
[2017-01-05 18:38] VITALS: BP 139/86
[2017-01-05] MEDS ORDERED: Vancomycin 1 GM in NS 275 ML IV ONE (18:45)
[2017-01-05] MEDS ORDERED: Acetaminophen 650 MG SUPP RECTAL ONE (18:45)
[2017-01-05] MEDS ORDERED: Cefepime HCl 1 GM in NS 55 ML IV SCH (18:45)
[2017-01-05] MEDS ORDERED: Cefepime 1gm vial ONE (18:47)
[2017-01-05 18:49] LABS: ABG ALLEN TEST POSITIVE; ABG BASE EXCESS 2.4; ABG PCO2 35.7 mmHg (35.0-45.0)
[2017-01-05 18:56] LABS: MEAN CORPUSCULAR HEMOGLOBIN 28.1 PG (27.0-31.0); MEAN CORPUSCULAR HGB CONC 31.6 G/DL (32.0-36.0); MEAN CORPUSCULAR VOLUME 89 FL (80-99); PLATELET COUNT 200 K/UL (150-450); RED CELL DISTRIBUTION WIDTH 16.7 % (11.6-14.8); WHITE BLOOD COUNT 19.4 K/UL (4.8-10.8)
[2017-01-05 19:02] LABS: APPEARANCE,URINE CLEAR; KETONES,URINE 2+ (NEGATIVE); LEUKOCYTE ESTERASE ,URINE 1+ (NEGATIVE); NITRITE,URINE POSITIVE (NEGATIVE); PH,URINE 5 (4.5-8.0); PROTEIN,URINE 2+ (NEGATIVE); UROBILINOGEN,URINE 12 MG/DL (0.0-1.0)
[2017-01-05] MEDS ORDERED: OXYCODONE HCL5 MG ORAL (19:02)
[2017-01-05] MEDS ORDERED: LORAZEPAM1 MG ORAL (19:05)
[2017-01-05] MEDS ORDERED: ZOFRAN8 MG ORAL (19:05)
[2017-01-05] MEDS ORDERED: TRAMADOL HCL50 MG ORAL (19:05)
[2017-01-05 19:08] LABS: INR 1.7 (0.9-1.1); PROTHROMBIN TIME 18.4 SEC (9.30-11.50)
[2017-01-05 19:22] LABS: BACTERIA,URINE MODERATE /HPF; SQUAMOUS EPITHELIAL CELL,UR FEW /LPF (NONE/OCC)
[2017-01-05 19:23] LABS: AMORPHOUS SEDIMENT,UR FEW /LPF
[2017-01-05 19:25] LABS: ICTOTEST POSITIVE
[2017-01-05] MEDS ORDERED: Vancomycin 1gm inj IVPB ONE (19:30)
[2017-01-05 19:36] LABS: ANION GAP 11 mmol/L (5-15); CALCIUM 8.8 MG/DL (8.5-10.1); CARBON DIOXIDE 29 MMOL/L (21-32); CHLORIDE 105 MMOL/L (98-107); CREATININE 1.4 MG/DL (0.55-1.30); POTASSIUM 3.2 MMOL/L (3.5-5.1); SODIUM 145 MMOL/L (136-145)
[2017-01-05 19:43] VITALS: BP 143/63
[2017-01-05 19:48] LABS: ALANINE AMINOTRANSFERASE 46 U/L (12-78); ALBUMIN/GLOBULIN RATIO 0.5 (1.0-2.7); ASPARTATE AMINO TRANSFERASE 120 U/L (15-37); TOTAL PROTEIN 6.9 G/DL (6.4-8.2)
[2017-01-05] MEDS ORDERED: Morphine Sulfate 2mg/ml Inj IVP PRN (20:00)
[2017-01-05] MEDS ORDERED: Albuterol/Ipratropium 3ml neb HHN PRN (20:00)
[2017-01-05] MEDS ORDERED: Miralax 17gm pkt ORAL PRN (20:00)
[2017-01-05 20:40] LABS: ANISOCYTOSIS 1+; EOSINOPHILS % (MANUAL) 1 % (0-3); HYPOCHROMASIA 1+; LYMPHOCYTES % (MANUAL) 5 % (20-45); NEUTROPHILS % (MANUAL) 85 % (45-75); TOTAL CELLS COUNTED 100
[2017-01-05 20:41] LABS: BAND NEUTROPHILS % (MANUAL) 0 % (0-8); BASOPHILS % (MANUAL) 0 % (0-2); PLATELET ESTIMATE ADEQUATE; PLATELET MORPHOLOGY NORMAL
--- NOTE | 2017-01-05 21:44 | History and Physical ---
History of Present Illness General Date patient seen: Jan 05, 2017 Reason for Hospitalization: Dyspnea/Respdistress Present Illness HPI 81 y/o gentle lady with pmhx stage IV pancreatic cancer with metastasis to liver s/p chemo ( still has R side chemo port), s/p biliary stents, dementia, history of breast CA is brought to [facility] emergency room with complaints of difficulty breathing and altered mental status. History has been obtained by discussing with the patients daughter by the bedside, the daughter of the patient dexcribes her mothers baseline mental functioning as not being good, failry confused and disoriented most of the time, however recently her mothers confusion markedly increased more than baseline low cognitive state according to the patients daughter. The patients daughter says that the patient has been very weak and lethargic for the past 2 days especially not eating or drinking much, forehead feeling hot to touch with night sweats. The patients termperature was taken at home and daughter states her mothers temperature reached as high as 103 degrees farenheit. The patient is being admitted to the hospital and broad spectrum IV antibiotics have been initiated for suspected sepsis. Allergies: Coded Allergies: No Known Allergies (Unverified , 12/19/16) Medication History Scheduled Cyproheptadine Hcl (Cyproheptadine Hcl), 4 MG PO TID, (Reported) Metoprolol Tartrate* (Metoprolol Tartrate*), 25 MG ORAL EVERY 12 HOURS, ( Reported) Scheduled PRN Lorazepam* (Lorazepam*), 1 MG ORAL BID PRN for For Anxiety, (Reported) Ondansetron Hcl* (Zofran*), 8 MG ORAL Q8HR PRN for Nausea & Vomiting, (Reported) Oxycodone Hcl Ir* (Roxicodone Ir*), 5 MG ORAL Q8H PRN for For Pain, (Reported) Tramadol Hcl* (Ultram*), 50 MG ORAL TID PRN for For Pain, (Reported) Patient History Healthcare decision maker Resuscitation status Advanced Directive on File Past Medical/Surgical History Past Medical/Surgical History: (1) HTN (hypertension) (2) Port-a-cath in place (3) Acute encephalopathy (4) Anemia (5) Metastatic adenocarcinoma Review of Systems Constitutional: Reports: chills, sweats, fever, malaise, weakness Respiratory: Reports: shortness of breath Endocrine: Reports: excessive sweating Physical Exam General Appearance: lethargic, confused, mild distress Lines, tubes and drains: peripheral HEENT: normocephalic, atraumatic, anicteric, PERRL Neck: non-tender, normal alignment, supple, normal inspection Respiratory/Chest: chest wall non-tender, decreased breath sounds, accessory muscle use Breasts: no masses Cardiovascular/Chest: normal peripheral pulses, normal rate, regular rhythm, no JVD Abdomen: normal bowel sounds, non tender, soft, no organomegaly, no mass Genitourinary/Rectal: normal genital exam, normal rectal exam Extremities: normal range of motion, non-tender, normal inspection, trace edema Skin Exam: normal pigmentation, warm/dry Neurologic: endocrinology nurse II-XII grossly normal, responsive, disoriented Musculoskeletal: atrophy Last 24 Hour Vital Signs Date Time Temp Pulse Resp B/P (MAP) Pulse Ox O2 Delivery O2 Flow Rate FiO2 01/05/17 19:43 103.1 114 16 143/63 99 Nasal Cannula 2.0 99 01/05/17 18:38 103.1 114 16 139/86 99 Nasal Cannula 2.0 01/05/17 18:15 114 18 Nasal Cannula 2.0 99 01/05/17 18:02 115 20 147/70 100 Non-Rebreather 15.0 Intake and Output 01/05/17 01/06/17 19:00 07:00 Output Total 30 ml Balance -30 ml Output Urine Total 30 ml Laboratory Tests Test 01/05/17 18:20 01/05/17 18:39 White Blood Count 19.4 K/UL (4.8-10.8) H Red Blood Count 3.70 M/UL (4.20-5.40) L Hemoglobin 10.4 G/DL (12.0-16.0) L Hematocrit 33.0 % (37.0-47.0) L Mean Corpuscular Volume 89 FL (80-99) Mean Corpuscular Hemoglobin 28.1 PG (27.0-31.0) Mean Corpuscular Hemoglobin Concent 31.6 G/DL (32.0-36.0) L Red Cell Distribution Width 16.7 % (11.6-14.8) H Platelet Count 200 K/UL (150-450) Mean Platelet Volume 7.0 FL (6.5-10.1) Neutrophils (%) (Auto) % (45.0-75.0) Lymphocytes (%) (Auto) % (20.0-45.0) Monocytes (%) (Auto) % (1.0-10.0) Eosinophils (%) (Auto) % (0.0-3.0) Basophils (%) (Auto) % (0.0-2.0) Differential Total Cells Counted 100 Neutrophils % (Manual) 85 % (45-75) H Lymphocytes % (Manual) 5 % (20-45) L Monocytes % (Manual) 9 % (1-10) Eosinophils % (Manual) 1 % (0-3) Basophils % (Manual) 0 % (0-2) Band Neutrophils 0 % (0-8) Platelet Estimate Adequate Platelet Morphology Normal Hypochromasia 1+ Anisocytosis 1+ Prothrombin Time 18.4 SEC (9.30-11.50) H Prothromb Time International Ratio 1.7 (0.9-1.1) H Activated Partial Thromboplast Time 26 SEC (23-33) Urine Color Brown Urine Appearance Clear Urine pH 5 (4.5-8.0) Urine Specific [place] 1.020 (1.005-1.035) Urine Protein 2+ (NEGATIVE) H Urine Glucose (UA) Negative (NEGATIVE) Urine Ketones 2+ (NEGATIVE) H Urine Occult Blood 1+ (NEGATIVE) H Urine Nitrite Positive (NEGATIVE) H Urine Bilirubin 2+ (NEGATIVE) H Urine Ictotest Positive Urine Urobilinogen 12 MG/DL (0.0-1.0) H Urine Leukocyte Esterase 1+ (NEGATIVE) H Urine RBC 2-4 /HPF (0 - 2) H Urine WBC 5-10 /HPF (0 - 2) H Urine Squamous Epithelial Cells Few /LPF (NONE/OCC) Urine Amorphous Sediment Few /LPF (NONE) H Urine Bacteria Moderate /HPF (NONE) H Sodium Level 145 MMOL/L (136-145) Potassium Level 3.2 MMOL/L (3.5-5.1) L Chloride Level 105 MMOL/L (98-107) Carbon Dioxide Level 29 MMOL/L (21-32) Anion Gap 11 mmol/L (5-15) Blood Urea Nitrogen 28 mg/dL (7-18) H Creatinine 1.4 MG/DL (0.55-1.30) H Estimat Glomerular Filtration Rate mL/min (>60) Glucose Level 126 MG/DL (74-106) H Lactic Acid Level 1.30 mmol/L (0.66-2.22) Calcium Level 8.8 MG/DL (8.5-10.1) Total Bilirubin 3.7 MG/DL (0.2-1.0) H Direct Bilirubin 3.0 MG/DL (0.0-0.3) H Aspartate Amino Transf (AST/SGOT) 120 U/L (15-37) H Alanine Aminotransferase (ALT/SGPT) 46 U/L (12-78) Alkaline Phosphatase 861 U/L (46-116) H Total Creatine Kinase 140 U/L (26-308) Troponin I 0.000 ng/mL (0.000-0.056) Pro-B-Type Natriuretic Peptide 1471 pg/mL (0-125) H Total Protein 6.9 G/DL (6.4-8.2) Albumin 2.4 G/DL (3.4-5.0) L Globulin 4.5 g/dL Albumin/Globulin Ratio 0.5 (1.0-2.7) L Arterial Blood pH 7.477 (7.350-7.450) Arterial Blood Partial Pressure CO2 35.7 mmHg (35.0-45.0) Arterial Blood Partial Pressure O2 102.6 mmHg (75.0-100.0) H Arterial Blood HCO3 25.8 mmol/L (22.0-26.0) Arterial Blood Oxygen Saturation 97.4 % (92.0-98.0) Arterial Blood Base Excess 2.4 Leno Test Positive Height (Feet): 4 Height (Inches): 11.00 Weight (Pounds): 130 Medications Current Medications Medications (Trade) Dose Ordered Sig/Charlene Route PRN Reason Start Time Stop Time Status Last Admin Dose Admin Acetaminophen (Tylenol) 650 mg Q4H PRN ORAL fever 01/05/17 20:00 02/04/17 19:59 Albuterol/ Ipratropium (Albuterol/ Ipratropium) 3 ml Q4H PRN HHN Shortness of Breath 01/05/17 20:00 01/10/17 19:59 Cefepime HCl 2 gm/ Dextrose 110 ml @ 220 mls/hr Q24H IV 01/06/17 18:00 01/13/17 17:59 Heparin Sodium (Porcine) (Heparin 5000 units/ml) 5,000 units EVERY 12 HOURS SUBQ 01/05/17 22:00 02/04/17 21:59 Morphine Sulfate (Morphine Sulfate) 2 mg Q4H PRN IVP Moderate Pain (Pain Scale 4-6) 01/05/17 20:00 01/12/17 19:59 Ondansetron HCl (Zofran) 4 mg Q6H PRN IVP Nausea & Vomiting 01/05/17 20:00 02/04/17 19:59 Phenazopyridine HCl (Pyridium) 100 mg DAILY PRN ORAL dysuria 01/05/17 20:00 02/04/17 19:59 Polyethylene Glycol (Miralax) 17 gm DAILYPRN PRN ORAL Constipation 01/05/17 20:00 02/04/17 19:59 Temazepam (Restoril) 15 mg HSPRN PRN ORAL Insomnia 01/05/17 20:00 01/12/17 19:59 Vancomycin HCl (Vanco rx to dose) 1 ea DAILY PRN MISC Per rx protocol 01/05/17 21:30 02/04/17 21:29 Assessment/Plan Status: stable, progressing Assessment/Plan Acute respiratory distress - improved on nasal canula Acute toxic metabolic encephalopathy 2 to infection and metastatic process Severe sepsis UTI Stage 5 pancreatic Ca with mets Anemia Protein calorie malnutrition Hypokalemia Transaminitis Acute kidney injury Plan IVF with KCL Empiric abx Infectious disease consultation requested F/up with cx O2 HHN DVT prophylaxis Bowel regimen Monitor and replace lytes as needed, additional K today ( in addition to KCL in IV) , check K and Mg in MARIOLA Santiago Jan 05, 2017 21:44
[2017-01-05] MEDS ORDERED: Heparin 5000 units/ml inj SUBQ SCH (22:00)
[2017-01-05 23:30] VITALS: BP 138/64
--- NOTE | 2017-01-06 00:06 | Consultation ---
History of Present Illness General Date patient seen: Jan 05, 2017 Chief Complaint: Dyspnea/Respdistress Present Illness Allergies: Coded Allergies: No Known Allergies (Unverified , 12/19/16) Medication History Scheduled Metoprolol Tartrate* (Metoprolol Tartrate*), 25 MG ORAL EVERY 12 HOURS, ( Reported) Scheduled PRN Lorazepam* (Lorazepam*), 1 MG ORAL BID PRN for For Anxiety, (Reported) Ondansetron Hcl* (Zofran*), 8 MG ORAL Q8HR PRN for Nausea & Vomiting, (Reported) Oxycodone Hcl Ir* (Roxicodone Ir*), 5 MG ORAL Q8H PRN for For Pain, (Reported) Tramadol Hcl* (Ultram*), 50 MG ORAL TID PRN for For Pain, (Reported) Patient History Healthcare decision maker Resuscitation status Advanced Directive on File Physical Exam Last 24 Hour Vital Signs Date Time Temp Pulse Resp B/P (MAP) Pulse Ox O2 Delivery O2 Flow Rate FiO2 01/05/17 19:43 103.1 114 16 143/63 99 Nasal Cannula 2.0 99 01/05/17 18:38 103.1 114 16 139/86 99 Nasal Cannula 2.0 01/05/17 18:15 114 18 Nasal Cannula 2.0 99 01/05/17 18:02 115 20 147/70 100 Non-Rebreather 15.0 Laboratory Tests Test 01/05/17 18:20 01/05/17 18:39 White Blood Count 19.4 K/UL (4.8-10.8) H Red Blood Count 3.70 M/UL (4.20-5.40) L Hemoglobin 10.4 G/DL (12.0-16.0) L Hematocrit 33.0 % (37.0-47.0) L Mean Corpuscular Volume 89 FL (80-99) Mean Corpuscular Hemoglobin 28.1 PG (27.0-31.0) Mean Corpuscular Hemoglobin Concent 31.6 G/DL (32.0-36.0) L Red Cell Distribution Width 16.7 % (11.6-14.8) H Platelet Count 200 K/UL (150-450) Mean Platelet Volume 7.0 FL (6.5-10.1) Neutrophils (%) (Auto) % (45.0-75.0) Lymphocytes (%) (Auto) % (20.0-45.0) Monocytes (%) (Auto) % (1.0-10.0) Eosinophils (%) (Auto) % (0.0-3.0) Basophils (%) (Auto) % (0.0-2.0) Differential Total Cells Counted 100 Neutrophils % (Manual) 85 % (45-75) H Lymphocytes % (Manual) 5 % (20-45) L Monocytes % (Manual) 9 % (1-10) Eosinophils % (Manual) 1 % (0-3) Basophils % (Manual) 0 % (0-2) Band Neutrophils 0 % (0-8) Platelet Estimate Adequate Platelet Morphology Normal Hypochromasia 1+ Anisocytosis 1+ Prothrombin Time 18.4 SEC (9.30-11.50) H Prothromb Time International Ratio 1.7 (0.9-1.1) H Activated Partial Thromboplast Time 26 SEC (23-33) Urine Color Brown Urine Appearance Clear Urine pH 5 (4.5-8.0) Urine Specific [place] 1.020 (1.005-1.035) Urine Protein 2+ (NEGATIVE) H Urine Glucose (UA) Negative (NEGATIVE) Urine Ketones 2+ (NEGATIVE) H Urine Occult Blood 1+ (NEGATIVE) H Urine Nitrite Positive (NEGATIVE) H Urine Bilirubin 2+ (NEGATIVE) H Urine Ictotest Positive Urine Urobilinogen 12 MG/DL (0.0-1.0) H Urine Leukocyte Esterase 1+ (NEGATIVE) H Urine RBC 2-4 /HPF (0 - 2) H Urine WBC 5-10 /HPF (0 - 2) H Urine Squamous Epithelial Cells Few /LPF (NONE/OCC) Urine Amorphous Sediment Few /LPF (NONE) H Urine Bacteria Moderate /HPF (NONE) H Sodium Level 145 MMOL/L (136-145) Potassium Level 3.2 MMOL/L (3.5-5.1) L Chloride Level 105 MMOL/L (98-107) Carbon Dioxide Level 29 MMOL/L (21-32) Anion Gap 11 mmol/L (5-15) Blood Urea Nitrogen 28 mg/dL (7-18) H Creatinine 1.4 MG/DL (0.55-1.30) H Estimat Glomerular Filtration Rate mL/min (>60) Glucose Level 126 MG/DL (74-106) H Lactic Acid Level 1.30 mmol/L (0.66-2.22) Calcium Level 8.8 MG/DL (8.5-10.1) Total Bilirubin 3.7 MG/DL (0.2-1.0) H Direct Bilirubin 3.0 MG/DL (0.0-0.3) H Aspartate Amino Transf (AST/SGOT) 120 U/L (15-37) H Alanine Aminotransferase (ALT/SGPT) 46 U/L (12-78) Alkaline Phosphatase 861 U/L (46-116) H Total Creatine Kinase 140 U/L (26-308) Troponin I 0.000 ng/mL (0.000-0.056) Pro-B-Type Natriuretic Peptide 1471 pg/mL (0-125) H Total Protein 6.9 G/DL (6.4-8.2) Albumin 2.4 G/DL (3.4-5.0) L Globulin 4.5 g/dL Albumin/Globulin Ratio 0.5 (1.0-2.7) L Arterial Blood pH 7.477 (7.350-7.450) Arterial Blood Partial Pressure CO2 35.7 mmHg (35.0-45.0) Arterial Blood Partial Pressure O2 102.6 mmHg (75.0-100.0) H Arterial Blood HCO3 25.8 mmol/L (22.0-26.0) Arterial Blood Oxygen Saturation 97.4 % (92.0-98.0) Arterial Blood Base Excess 2.4 Leno Test Positive Height (Feet): 4 Height (Inches): 11.00 Weight (Pounds): 130 Medications Current Medications Medications (Trade) Dose Ordered Sig/Charlene Route PRN Reason Start Time Stop Time Status Last Admin Dose Admin Acetaminophen (Tylenol) 650 mg Q4H PRN ORAL fever 01/05/17 20:00 02/04/17 19:59 Albuterol/ Ipratropium (Albuterol/ Ipratropium) 3 ml Q4H PRN HHN Shortness of Breath 01/05/17 20:00 01/10/17 19:59 Cefepime HCl 2 gm/ Dextrose 110 ml @ 220 mls/hr Q24H IV 01/06/17 18:00 01/13/17 17:59 Heparin Sodium (Porcine) (Heparin 5000 units/ml) 5,000 units EVERY 12 HOURS SUBQ 01/05/17 22:00 02/04/17 21:59 Morphine Sulfate (Morphine Sulfate) 2 mg Q4H PRN IVP Moderate Pain (Pain Scale 4-6) 01/05/17 20:00 01/12/17 19:59 Ondansetron HCl (Zofran) 4 mg Q6H PRN IVP Nausea & Vomiting 01/05/17 20:00 02/04/17 19:59 Phenazopyridine HCl (Pyridium) 100 mg DAILY PRN ORAL dysuria 01/05/17 20:00 02/04/17 19:59 Polyethylene Glycol (Miralax) 17 gm DAILYPRN PRN ORAL Constipation 01/05/17 20:00 02/04/17 19:59 Temazepam (Restoril) 15 mg HSPRN PRN ORAL Insomnia 01/05/17 20:00 01/12/17 19:59 Vancomycin HCl (Vanco rx to dose) 1 ea DAILY PRN MISC Per rx protocol 01/05/17 21:30 02/04/17 21:29 Melchor Villalobos M.D. Jan 06, 2017 00:06
[2017-01-06] MEDS ORDERED: Vancomycin 1 GM in D5W 275 ML IV SCH (00:30)
[2017-01-06 00:38] VITALS: BP 152/85
[2017-01-06] MEDS: Heparin 5000 units/ml inj SUBQ SCH ×2 (00:53→08:34)
[2017-01-06 04:00] VITALS: BP 130/53
[2017-01-06 07:05] LABS: MEAN CORPUSCULAR HEMOGLOBIN 28.7 PG (27.0-31.0); MEAN CORPUSCULAR HGB CONC 32.7 G/DL (32.0-36.0); MEAN CORPUSCULAR VOLUME 88 FL (80-99); MEAN PLATELET VOLUME 7.4 FL (6.5-10.1); PLATELET COUNT 170 K/UL (150-450); RED BLOOD COUNT 3.27 M/UL (4.20-5.40); RED CELL DISTRIBUTION WIDTH 17.2 % (11.6-14.8); WHITE BLOOD COUNT 19.7 K/UL (4.8-10.8)
[2017-01-06 07:26] LABS: ALANINE AMINOTRANSFERASE 37 U/L (12-78); ALBUMIN/GLOBULIN RATIO 0.6 (1.0-2.7); ANION GAP 9 mmol/L (5-15); ASPARTATE AMINO TRANSFERASE 97 U/L (15-37); CALCIUM 7.9 MG/DL (8.5-10.1); CARBON DIOXIDE 25 MMOL/L (21-32); CHLORIDE 107 MMOL/L (98-107); CREATININE 1.1 MG/DL (0.55-1.30); POTASSIUM 3.1 MMOL/L (3.5-5.1); SODIUM 141 MMOL/L (136-145); TOTAL PROTEIN 5.8 G/DL (6.4-8.2)
--- NOTE | 2017-01-06 07:29 | Pulmonology Progress Note ---
Assessment/Plan Assessment/Plan ASSESSMENT Acute hypoxemic respiratory failure requiring NRM,-resolved Acute toxic metabolic encephalopathy 2 to infection and metastatic process Severe sepsis UTI st 5 pancreatic Ca with mets Anemia protein calorie malnutrition hypokalemia transaminitis acute kidney injury PLAN OF CARE IVF with KCL empiric abx ID consult F/up with cx O2 HHN DVT prophylaxis pain management bowel regimen monitor and replace lytes as needed, additional K today ( in addition to KCL in IV) , check K and Mg in am Trend LFT monitor counts, transfuse prn f/up with renal parameters, avoid nephrotoxic add appetite stimulant nephro consult dietary eval DNR/DNI status will be going home when stabilized with hospice services transfer to [facility] floor case discussed and evaluated by supervising physician Subjective Allergies: Coded Allergies: No Known Allergies (Unverified , 12/19/16) Subjective persistent leukocytosis, anemia K-3.1 remains confused and disoriented family at the bedside , reported very poor oral intake ( about 5% this am) Objective Last 24 Hour Vital Signs Date Time Temp Pulse Resp B/P (MAP) Pulse Ox O2 Delivery O2 Flow Rate FiO2 01/06/17 04:00 95 01/06/17 04:00 97.3 83 20 130/53 99 01/06/17 02:02 90 16 Room Air 21 01/06/17 00:38 97.7 90 152/85 93 Room Air 01/06/17 00:00 89 01/05/17 23:30 97.8 98 16 138/64 99 Nasal Cannula 2.0 99 01/05/17 23:30 103.1 114 16 143/63 99 Nasal Cannula 2.0 99 114 01/05/17 19:43 103.1 114 16 143/63 99 Nasal Cannula 2.0 99 01/05/17 18:38 103.1 114 16 139/86 99 Nasal Cannula 2.0 01/05/17 18:15 114 18 Nasal Cannula 2.0 99 01/05/17 18:02 115 20 147/70 100 Non-Rebreather 15.0 General Appearance: cachetic, other - awake, alert, confused HEENT: normocephalic, atraumatic, anicteric Respiratory/Chest: lungs clear, no respiratory distress, no accessory muscle use Cardiovascular: normal peripheral pulses, normal rate, regular rhythm - SR on tele, no JVD Abdomen: normal bowel sounds, soft, non tender, non distended Neurologic/Psychiatric: abnormal gait, alert - confused , responsive Musculoskeletal: atrophy - BLE Laboratory Tests 01/05/17 18:20: White Blood Count 19.4H, Red Blood Count 3.70L, Hemoglobin 10.4L, Hematocrit 33.0L, Mean Corpuscular Volume 89, Mean Corpuscular Hemoglobin 28.1, Mean Corpuscular Hemoglobin Concent 31.6L, Red Cell Distribution Width 16.7H, Platelet Count 200, Mean Platelet Volume 7.0, Neutrophils (%) (Auto) , Lymphocytes (%) (Auto) , Monocytes (%) (Auto) , Eosinophils (%) (Auto) , Basophils (%) (Auto) , Differential Total Cells Counted 100, Neutrophils % ( Manual) 85H, Lymphocytes % (Manual) 5L, Monocytes % (Manual) 9, Eosinophils % ( Manual) 1, Basophils % (Manual) 0, Band Neutrophils 0, Platelet Estimate Adequate, Platelet Morphology Normal, Hypochromasia 1+, Anisocytosis 1+, Prothrombin Time 18.4H, Prothromb Time International Ratio 1.7H, Activated Partial Thromboplast Time 26, Urine Color Brown, Urine Appearance Clear, Urine pH 5, Urine Specific [place] 1.020, Urine Protein 2+H, Urine Glucose (UA) Negative, Urine Ketones 2+H, Urine Occult Blood 1+H, Urine Nitrite PositiveH, Urine Bilirubin 2+H, Urine Ictotest Positive, Urine Urobilinogen 12H, Urine Leukocyte Esterase 1+H, Urine RBC 2-4H, Urine WBC 5-10H, Urine Squamous Epithelial Cells Few, Urine Amorphous Sediment FewH, Urine Bacteria ModerateH, Sodium Level 145, Potassium Level 3.2L, Chloride Level 105, Carbon Dioxide Level 29, Anion Gap 11, Blood Urea Nitrogen 28H, Creatinine 1.4H, Estimat Glomerular Filtration Rate , Glucose Level 126H, Lactic Acid Level 1.30, Calcium Level 8.8, Total Bilirubin 3.7H, Direct Bilirubin 3.0H, Aspartate Amino Transf (AST/SGOT) 120H, Alanine Aminotransferase (ALT/SGPT) 46, Alkaline Phosphatase 861H, Total Creatine Kinase 140, Troponin I 0.000, Pro-B-Type Natriuretic Peptide 1471H, Total Protein 6.9, Albumin 2.4L, Globulin 4.5, Albumin/Globulin Ratio 0.5L 01/05/17 18:39: Arterial Blood pH 7.477H, Arterial Blood Partial Pressure CO2 35.7, Arterial Blood Partial Pressure O2 102.6H, Arterial Blood HCO3 25.8, Arterial Blood Oxygen Saturation 97.4, Arterial Blood Base Excess 2.4, Leno Test Positive 01/06/17 06:20: White Blood Count 19.7H, Red Blood Count 3.27L, Hemoglobin 9.4L, Hematocrit 28.7L, Mean Corpuscular Volume 88, Mean Corpuscular Hemoglobin 28.7, Mean Corpuscular Hemoglobin Concent 32.7, Red Cell Distribution Width 17.2H, Platelet Count 170, Mean Platelet Volume 7.4, Neutrophils (%) (Auto) , Lymphocytes (%) (Auto) , Monocytes (%) (Auto) , Eosinophils (%) (Auto) , Basophils (%) (Auto) , Neutrophils % (Manual) [Pending], Lymphocytes % (Manual) [Pending], Platelet Estimate [Pending], Platelet Morphology [Pending], Sodium Level [Pending], Potassium Level [Pending], Chloride Level [Pending], Carbon Dioxide Level [Pending], Blood Urea Nitrogen [Pending], Creatinine [Pending], Estimat Glomerular Filtration Rate [Pending], Glucose Level [Pending], Calcium Level [Pending], Total Bilirubin [Pending], Aspartate Amino Transf (AST/SGOT) [ Pending], Alanine Aminotransferase (ALT/SGPT) [Pending], Alkaline Phosphatase [ Pending], Total Protein [Pending], Albumin [Pending], Globulin [Pending] Current Medications Medications (Trade) Dose Ordered Sig/Charlene Route PRN Reason Start Time Stop Time Status Last Admin Dose Admin Acetaminophen (Tylenol) 650 mg Q4H PRN ORAL fever 01/05/17 20:00 02/04/17 19:59 Albuterol/ Ipratropium (Albuterol/ Ipratropium) 3 ml Q4H PRN HHN Shortness of Breath 01/05/17 20:00 01/10/17 19:59 Cefepime HCl 2 gm/ Dextrose 110 ml @ 220 mls/hr Q24H IV 01/06/17 18:00 01/13/17 17:59 Chlorhexidine Gluconate (Dhara-Hex 2%) 1 applic DAILY@2000 TOPIC 01/06/17 20:00 02/05/17 19:59 Heparin Sodium (Porcine) (Heparin 5000 units/ml) 5,000 units EVERY 12 HOURS SUBQ 01/06/17 00:35 02/05/17 00:34 01/06/17 00:53 Morphine Sulfate (Morphine Sulfate) 2 mg Q4H PRN IVP Moderate Pain (Pain Scale 4-6) 01/05/17 20:00 01/12/17 19:59 Ondansetron HCl (Zofran) 4 mg Q6H PRN IVP Nausea & Vomiting 01/05/17 20:00 02/04/17 19:59 01/06/17 02:25 Phenazopyridine HCl (Pyridium) 100 mg DAILY PRN ORAL dysuria 01/05/17 20:00 02/04/17 19:59 Polyethylene Glycol (Miralax) 17 gm DAILYPRN PRN ORAL Constipation 01/05/17 20:00 02/04/17 19:59 Temazepam (Restoril) 15 mg HSPRN PRN ORAL Insomnia 01/05/17 20:00 01/12/17 19:59 Vancomycin HCl (Vanco rx to dose) 1 ea DAILY PRN MISC Per rx protocol 01/05/17 21:30 02/04/17 21:29 [place] (Sarahy Silva NP Jan 06, 2017 07:29
[2017-01-06 07:42] VITALS: BP 143/96
[2017-01-06 08:52] LABS: ANISOCYTOSIS 1+; BAND NEUTROPHILS % (MANUAL) 0 % (0-8); BASOPHILS % (MANUAL) 0 % (0-2); EOSINOPHILS % (MANUAL) 0 % (0-3); HYPOCHROMASIA 1+; LYMPHOCYTES % (MANUAL) 11 % (20-45); NEUTROPHILS % (MANUAL) 83 % (45-75); PLATELET ESTIMATE ADEQUATE; PLATELET MORPHOLOGY NORMAL; TOTAL CELLS COUNTED 100
--- NOTE | 2017-01-06 10:54 | Consultation ---
History of Present Illness General Date patient seen: Jan 06, 2017 Time patient seen: 10:54 Chief Complaint: Dyspnea/Respdistress Present Illness HPI 81 y/o F with hx of stage IV pancreatic cancer with mets to liver s/p chemo ( still has R side chemo port), s/p biliary stents, Dementia, hx Breast CA is brought to ED on 01/05 with AMS (more confused than normal). Per daughter, patient has not been eating/drinking for 2 days. She required brifely Non rebreather mask. There is concern for UTI so was started on Vanco and Cefepime. Febrile to 103, leukocytosis to 19. No report of n/v/d, f/c, abd pain. REcently admitted on 12/19-12/24 where she presented with sepsis 2ry to K. pneumonae UTI and treated with 7 days of Abx (Cefepime>Ancef>levaquin). On that admission she was made DNR/DNI and initiated Hospice care Allergies: Coded Allergies: No Known Allergies (Unverified , 12/19/16) Medication History Scheduled Metoprolol Tartrate* (Metoprolol Tartrate*), 25 MG ORAL EVERY 12 HOURS, ( Reported) Scheduled PRN Lorazepam* (Lorazepam*), 1 MG ORAL BID PRN for For Anxiety, (Reported) Ondansetron Hcl* (Zofran*), 8 MG ORAL Q8HR PRN for Nausea & Vomiting, (Reported) Oxycodone Hcl Ir* (Roxicodone Ir*), 5 MG ORAL Q8H PRN for For Pain, (Reported) Tramadol Hcl* (Ultram*), 50 MG ORAL TID PRN for For Pain, (Reported) Patient History Healthcare decision maker Resuscitation status Advanced Directive on File Review of Systems ROS Narrative unable to obtain Physical Exam Physical Exam Narrative General Appearance: tired, not in resp distress, Chronically Ill HEENT normocephalic, atraumatic, bilateral eye PERRL, bilateral eye EOMI, moist mucus membranes Neck: normal inspection, full range of motion, supple Respiratory: normal inspection, lungs clear, normal breath sounds, no respiratory distress, no retraction, no wheezing, speaking full sentences, chest symmetrical Cardiovascular normal peripheral pulses, regular rate, rhythm, no edema, tachycardia, other - +R sided chemo port Gastrointestinal: normal inspection, non tender, soft, non-distended, no guarding Musculoskeletal: normal inspection, back normal, normal range of motion, non- tender Neurologic: awake, answering questions Skin: normal inspection, normal color, no rash, warm/dry Last 24 Hour Vital Signs Date Time Temp Pulse Resp B/P (MAP) Pulse Ox O2 Delivery O2 Flow Rate FiO2 01/06/17 07:42 97.7 110 18 143/96 95 01/06/17 04:00 95 01/06/17 04:00 97.3 83 20 130/53 99 01/06/17 02:02 90 16 Room Air 21 01/06/17 00:38 97.7 90 152/85 93 Room Air 01/06/17 00:00 89 01/05/17 23:30 97.8 98 16 138/64 99 Nasal Cannula 2.0 99 01/05/17 23:30 103.1 114 16 143/63 99 Nasal Cannula 2.0 99 114 01/05/17 19:43 103.1 114 16 143/63 99 Nasal Cannula 2.0 99 01/05/17 18:38 103.1 114 16 139/86 99 Nasal Cannula 2.0 01/05/17 18:15 114 18 Nasal Cannula 2.0 99 01/05/17 18:02 115 20 147/70 100 Non-Rebreather 15.0 Intake and Output 01/06/17 01/07/17 19:00 07:00 Intake Total 200 ml Output Total 175 ml Balance 25 ml Intake Oral 200 ml Output Urine Total 175 ml # Bowel Movements 1 Laboratory Tests Test 01/05/17 18:20 01/05/17 18:39 01/06/17 06:20 White Blood Count 19.4 K/UL (4.8-10.8) H 19.7 K/UL (4.8-10.8) H Red Blood Count 3.70 M/UL (4.20-5.40) L 3.27 M/UL (4.20-5.40) L Hemoglobin 10.4 G/DL (12.0-16.0) L 9.4 G/DL (12.0-16.0) L Hematocrit 33.0 % (37.0-47.0) L 28.7 % (37.0-47.0) L Mean Corpuscular Volume 89 FL (80-99) 88 FL (80-99) Mean Corpuscular Hemoglobin 28.1 PG (27.0-31.0) 28.7 PG (27.0-31.0) Mean Corpuscular Hemoglobin Concent 31.6 G/DL (32.0-36.0) L 32.7 G/DL (32.0-36.0) Red Cell Distribution Width 16.7 % (11.6-14.8) H 17.2 % (11.6-14.8) H Platelet Count 200 K/UL (150-450) 170 K/UL (150-450) Mean Platelet Volume 7.0 FL (6.5-10.1) 7.4 FL (6.5-10.1) Neutrophils (%) (Auto) % (45.0-75.0) % (45.0-75.0) Lymphocytes (%) (Auto) % (20.0-45.0) % (20.0-45.0) Monocytes (%) (Auto) % (1.0-10.0) % (1.0-10.0) Eosinophils (%) (Auto) % (0.0-3.0) % (0.0-3.0) Basophils (%) (Auto) % (0.0-2.0) % (0.0-2.0) Differential Total Cells Counted 100 100 Neutrophils % (Manual) 85 % (45-75) H 83 % (45-75) H Lymphocytes % (Manual) 5 % (20-45) L 11 % (20-45) L Monocytes % (Manual) 9 % (1-10) 6 % (1-10) Eosinophils % (Manual) 1 % (0-3) 0 % (0-3) Basophils % (Manual) 0 % (0-2) 0 % (0-2) Band Neutrophils 0 % (0-8) 0 % (0-8) Platelet Estimate Adequate Adequate Platelet Morphology Normal Normal Hypochromasia 1+ 1+ Anisocytosis 1+ 1+ Prothrombin Time 18.4 SEC (9.30-11.50) H Prothromb Time International Ratio 1.7 (0.9-1.1) H Activated Partial Thromboplast Time 26 SEC (23-33) Urine Color Brown Urine Appearance Clear Urine pH 5 (4.5-8.0) Urine Specific [place] 1.020 (1.005-1.035) Urine Protein 2+ (NEGATIVE) H Urine Glucose (UA) Negative (NEGATIVE) Urine Ketones 2+ (NEGATIVE) H Urine Occult Blood 1+ (NEGATIVE) H Urine Nitrite Positive (NEGATIVE) H Urine Bilirubin 2+ (NEGATIVE) H Urine Ictotest Positive Urine Urobilinogen 12 MG/DL (0.0-1.0) H Urine Leukocyte Esterase 1+ (NEGATIVE) H Urine RBC 2-4 /HPF (0 - 2) H Urine WBC 5-10 /HPF (0 - 2) H Urine Squamous Epithelial Cells Few /LPF (NONE/OCC) Urine Amorphous Sediment Few /LPF (NONE) H Urine Bacteria Moderate /HPF (NONE) H Sodium Level 145 MMOL/L (136-145) 141 MMOL/L (136-145) Potassium Level 3.2 MMOL/L (3.5-5.1) L 3.1 MMOL/L (3.5-5.1) L Chloride Level 105 MMOL/L (98-107) 107 MMOL/L (98-107) Carbon Dioxide Level 29 MMOL/L (21-32) 25 MMOL/L (21-32) Anion Gap 11 mmol/L (5-15) 9 mmol/L (5-15) Blood Urea Nitrogen 28 mg/dL (7-18) H 23 mg/dL (7-18) H Creatinine 1.4 MG/DL (0.55-1.30) H 1.1 MG/DL (0.55-1.30) Estimat Glomerular Filtration Rate mL/min (>60) mL/min (>60) Glucose Level 126 MG/DL (74-106) H 110 MG/DL (74-106) H Lactic Acid Level 1.30 mmol/L (0.66-2.22) Calcium Level 8.8 MG/DL (8.5-10.1) 7.9 MG/DL (8.5-10.1) L Total Bilirubin 3.7 MG/DL (0.2-1.0) H 3.9 MG/DL (0.2-1.0) H Direct Bilirubin 3.0 MG/DL (0.0-0.3) H 3.0 MG/DL (0.0-0.3) H Aspartate Amino Transf (AST/SGOT) 120 U/L (15-37) H 97 U/L (15-37) H Alanine Aminotransferase (ALT/SGPT) 46 U/L (12-78) 37 U/L (12-78) Alkaline Phosphatase 861 U/L (46-116) H 658 U/L (46-116) H Total Creatine Kinase 140 U/L (26-308) Troponin I 0.000 ng/mL (0.000-0.056) Pro-B-Type Natriuretic Peptide 1471 pg/mL (0-125) H Total Protein 6.9 G/DL (6.4-8.2) 5.8 G/DL (6.4-8.2) L Albumin 2.4 G/DL (3.4-5.0) L 2.1 G/DL (3.4-5.0) L Globulin 4.5 g/dL 3.7 g/dL Albumin/Globulin Ratio 0.5 (1.0-2.7) L 0.6 (1.0-2.7) L Arterial Blood pH 7.477 (7.350-7.450) Arterial Blood Partial Pressure CO2 35.7 mmHg (35.0-45.0) Arterial Blood Partial Pressure O2 102.6 mmHg (75.0-100.0) H Arterial Blood HCO3 25.8 mmol/L (22.0-26.0) Arterial Blood Oxygen Saturation 97.4 % (92.0-98.0) Arterial Blood Base Excess 2.4 Leno Test Positive Microbiology Date/Time Source Procedure Growth Status 01/05/17 18:20 Urine,Clean Catch Urine Culture - Preliminary NO GROWTH Resulted Height (Feet): 5 Height (Inches): 1.00 Weight (Pounds): 108 Medications Current Medications Medications (Trade) Dose Ordered Sig/Charlene Route PRN Reason Start Time Stop Time Status Last Admin Dose Admin Acetaminophen (Tylenol) 650 mg Q4H PRN ORAL fever 01/05/17 20:00 02/04/17 19:59 Albuterol/ Ipratropium (Albuterol/ Ipratropium) 3 ml Q4H PRN HHN Shortness of Breath 01/05/17 20:00 01/10/17 19:59 Cefepime HCl 2 gm/ Dextrose 110 ml @ 220 mls/hr Q24H IV 01/06/17 18:00 01/13/17 17:59 Chlorhexidine Gluconate (Dhara-Hex 2%) 1 applic DAILY@2000 TOPIC 01/06/17 20:00 02/05/17 19:59 Dextrose/ Electrolytes 1,000 ml @ 75 mls/hr [id number] IV 01/06/17 11:30 02/05/17 11:29 Heparin Sodium (Porcine) (Heparin 5000 units/ml) 5,000 units EVERY 12 HOURS SUBQ 01/06/17 00:35 02/05/17 00:34 01/06/17 08:34 Morphine Sulfate (Morphine Sulfate) 2 mg Q4H PRN IVP Moderate Pain (Pain Scale 4-6) 01/05/17 20:00 01/12/17 19:59 Ondansetron HCl (Zofran) 4 mg Q6H PRN IVP Nausea & Vomiting 01/05/17 20:00 02/04/17 19:59 01/06/17 02:25 Phenazopyridine HCl (Pyridium) 100 mg DAILY PRN ORAL dysuria 01/05/17 20:00 02/04/17 19:59 Polyethylene Glycol (Miralax) 17 gm DAILYPRN PRN ORAL Constipation 01/05/17 20:00 02/04/17 19:59 Temazepam (Restoril) 15 mg HSPRN PRN ORAL Insomnia 01/05/17 20:00 01/12/17 19:59 Vancomycin HCl (Vanco rx to dose) 1 ea DAILY PRN MISC Per rx protocol 01/05/17 21:30 02/04/17 21:29 Assessment/Plan Assessment/Plan Abx: IV Vanco 01/05- Cefepime 01/05- Assesment: SEpsis- ?2ry to UTI, r/o bacteremia given presence of chemo port -u/a wbc 5-10, nit +, leuk +1; ucx NTD -CXR p -Bcx p Fever/leukocytosis AMS (w/ baseline dementia) JAKE, improving Elevated AST, improving Recent K. pna UTI, s/p Rx stage IV pancreatic cancer with mets to liver s/p chemo ( still has R side chemo port) s/p biliary stents Dementia hx Breast CA Plan: -Continue IV Vancomycin pending Bcx -COntinue Cefepime pending UCx -12/25 Levaquin #2 -12/24 SP Ceftriaxone #3 -12/22 SP cefepime d# 2 -f/u cx -MOnitor CBC/BMp, temperatuers -aspiration precauations -goals of care Thank you for this consulation. Will continue to follow along with you. Lora crowell RN. Camila Crews M.D. Jan 06, 2017 10:54
--- NOTE | 2017-01-06 11:18 | Diagnostic Imaging Report ---
Indication: Shortness of breath Technique: One view of the chest Comparison: Limb 13 2017 Findings: Lungs and pleural spaces are clear. Heart size is normal. Right chest port catheter is again demonstrated. BC demonstrated left costophrenic angle blunting is no longer evident. Degenerative changes of both shoulders again noted Impression: No acute process
[2017-01-06 11:23] VITALS: BP 148/75
[2017-01-06] MEDS ORDERED: D5 1/2NS w/KCl 20mEq 1,000 ML IV SCH (11:30)
[2017-01-06] MEDS ORDERED: KCl 10% 20 mEq/15ml liquid ORAL ONE (12:30)
[2017-01-06] MEDS ORDERED: Cyproheptadine HCl 4mg tab ORAL SCH (13:00)
[2017-01-06] MEDS ORDERED: KCl 10% 20 mEq/15ml liquid NG ONE (13:30)
[2017-01-06] MEDS ORDERED: Cefepime HCl 2 GM in D5W 55 ML IV SCH ×2 (13:45→18:00)
--- NOTE | 2017-01-06 14:56 | General Progress Note ---
Assessment/Plan Status: stable, progressing Assessment/Plan Anxiety d/o mdd cognitive impairment -lexapro 10mg qam Subjective Date patient seen: Jan 06, 2017 Neurologic/Psychiatric: Reports: anxiety, depressed, emotional problems Allergies: Coded Allergies: No Known Allergies (Unverified , 12/19/16) Objective Last 24 Hour Vital Signs Date Time Temp Pulse Resp B/P (MAP) Pulse Ox O2 Delivery O2 Flow Rate FiO2 01/06/17 12:00 100 01/06/17 11:23 96.7 101 18 148/75 96 01/06/17 08:00 102 01/06/17 07:55 85 16 Room Air 21 01/06/17 07:42 97.7 110 18 143/96 95 01/06/17 04:00 95 01/06/17 04:00 97.3 83 20 130/53 99 01/06/17 02:02 90 16 Room Air 21 01/06/17 00:38 97.7 90 152/85 93 Room Air 01/06/17 00:00 89 01/05/17 23:30 97.8 98 16 138/64 99 Nasal Cannula 2.0 99 01/05/17 23:30 103.1 114 16 143/63 99 Nasal Cannula 2.0 99 114 01/05/17 19:43 103.1 114 16 143/63 99 Nasal Cannula 2.0 99 01/05/17 18:38 103.1 114 16 139/86 99 Nasal Cannula 2.0 01/05/17 18:15 114 18 Nasal Cannula 2.0 99 01/05/17 18:02 115 20 147/70 100 Non-Rebreather 15.0 Intake and Output 01/06/17 01/07/17 19:00 07:00 Intake Total 400 ml Output Total 425 ml Balance -25 ml Intake Oral 400 ml Output Urine Total 425 ml # Bowel Movements 2 Laboratory Tests 01/05/17 18:20: White Blood Count 19.4H, Red Blood Count 3.70L, Hemoglobin 10.4L, Hematocrit 33.0L, Mean Corpuscular Volume 89, Mean Corpuscular Hemoglobin 28.1, Mean Corpuscular Hemoglobin Concent 31.6L, Red Cell Distribution Width 16.7H, Platelet Count 200, Mean Platelet Volume 7.0, Neutrophils (%) (Auto) , Lymphocytes (%) (Auto) , Monocytes (%) (Auto) , Eosinophils (%) (Auto) , Basophils (%) (Auto) , Differential Total Cells Counted 100, Neutrophils % ( Manual) 85H, Lymphocytes % (Manual) 5L, Monocytes % (Manual) 9, Eosinophils % ( Manual) 1, Basophils % (Manual) 0, Band Neutrophils 0, Platelet Estimate Adequate, Platelet Morphology Normal, Hypochromasia 1+, Anisocytosis 1+, Prothrombin Time 18.4H, Prothromb Time International Ratio 1.7H, Activated Partial Thromboplast Time 26, Urine Color Brown, Urine Appearance Clear, Urine pH 5, Urine Specific [place] 1.020, Urine Protein 2+H, Urine Glucose (UA) Negative, Urine Ketones 2+H, Urine Occult Blood 1+H, Urine Nitrite PositiveH, Urine Bilirubin 2+H, Urine Ictotest Positive, Urine Urobilinogen 12H, Urine Leukocyte Esterase 1+H, Urine RBC 2-4H, Urine WBC 5-10H, Urine Squamous Epithelial Cells Few, Urine Amorphous Sediment FewH, Urine Bacteria ModerateH, Sodium Level 145, Potassium Level 3.2L, Chloride Level 105, Carbon Dioxide Level 29, Anion Gap 11, Blood Urea Nitrogen 28H, Creatinine 1.4H, Estimat Glomerular Filtration Rate , Glucose Level 126H, Lactic Acid Level 1.30, Calcium Level 8.8, Total Bilirubin 3.7H, Direct Bilirubin 3.0H, Aspartate Amino Transf (AST/SGOT) 120H, Alanine Aminotransferase (ALT/SGPT) 46, Alkaline Phosphatase 861H, Total Creatine Kinase 140, Troponin I 0.000, Pro-B-Type Natriuretic Peptide 1471H, Total Protein 6.9, Albumin 2.4L, Globulin 4.5, Albumin/Globulin Ratio 0.5L 01/05/17 18:39: Arterial Blood pH 7.477H, Arterial Blood Partial Pressure CO2 35.7, Arterial Blood Partial Pressure O2 102.6H, Arterial Blood HCO3 25.8, Arterial Blood Oxygen Saturation 97.4, Arterial Blood Base Excess 2.4, Leno Test Positive 01/06/17 06:20: White Blood Count 19.7H, Red Blood Count 3.27L, Hemoglobin 9.4L, Hematocrit 28.7L, Mean Corpuscular Volume 88, Mean Corpuscular Hemoglobin 28.7, Mean Corpuscular Hemoglobin Concent 32.7, Red Cell Distribution Width 17.2H, Platelet Count 170, Mean Platelet Volume 7.4, Neutrophils (%) (Auto) , Lymphocytes (%) (Auto) , Monocytes (%) (Auto) , Eosinophils (%) (Auto) , Basophils (%) (Auto) , Differential Total Cells Counted 100, Neutrophils % ( Manual) 83H, Lymphocytes % (Manual) 11L, Monocytes % (Manual) 6, Eosinophils % ( Manual) 0, Basophils % (Manual) 0, Band Neutrophils 0, Platelet Estimate Adequate, Platelet Morphology Normal, Hypochromasia 1+, Anisocytosis 1+, Sodium Level 141, Potassium Level 3.1L, Chloride Level 107, Carbon Dioxide Level 25, Anion Gap 9, Blood Urea Nitrogen 23H, Creatinine 1.1, Estimat Glomerular Filtration Rate , Glucose Level 110H, Calcium Level 7.9L, Total Bilirubin 3.9H, Direct Bilirubin 3.0H, Aspartate Amino Transf (AST/SGOT) 97H, Alanine Aminotransferase (ALT/SGPT) 37, Alkaline Phosphatase 658H, Total Protein 5.8L, Albumin 2.1L, Globulin 3.7, Albumin/Globulin Ratio 0.6L Height (Feet): 5 Height (Inches): 1.00 Weight (Pounds): 108 General Appearance: WD/WN, no apparent distress, alert Neurologic: alert, oriented x 3, responsive, depressed affect Melchor Villalobos M.D. Jan 06, 2017 14:56
[2017-01-06 15:40] VITALS: BP 166/93
[2017-01-06] MEDS ORDERED: CYPROHEPTADINE H4 MG PO (17:33)
[2017-01-06] MEDS ORDERED: Cefepime HCl 2 GM in D5W 110 ML IV SCH (18:00)
[2017-01-06] MEDS ORDERED: Dyna-Hex 2% Top Sol 2oz TOPIC SCH (20:00)
[2017-01-06] MEDS ORDERED: Vancomycin 500 MG in D5W 275 ML IVPB SCH (20:00)
--- NOTE | 2017-01-07 18:28 | Cardiology Report ---
APPROVED REPORT EKG Measurement Heart [id number] VT [id number] Sinus tachycardia Nonspecific ST abnormality Abnormal ECG
--- NOTE | 2017-01-09 10:08 | Discharge Summary ---
Discharge Summary Hospital Course Date of Admission Jan 05, 2017 at 19:11 Date of Discharge Jan 06, 2017 at 17:46 Admitting Diagnosis Sepsis HPI Tracy Maher is a 81 year old female who was admitted on Jan 05, 2017 at 19: 11 for Sepsis Hospital Course dc summary #[id number] Discharge Medications Continued Medications: Cyproheptadine Hcl (Cyproheptadine Hcl) 4 Mg Tablet 4 MG PO TID for 30 Days, TAB Lorazepam* (Lorazepam*) 1 Mg Tablet 1 MG ORAL BID PRN for For Anxiety Metoprolol Tartrate* (Metoprolol Tartrate*) 25 Mg Tablet 25 MG ORAL EVERY 12 HOURS, TAB Ondansetron Hcl* (Zofran*) 8 Mg Tablet 8 MG ORAL Q8HR PRN for Nausea & Vomiting Oxycodone Hcl Ir* (Roxicodone Ir*) 5 Mg Tablet 5 MG ORAL Q8H PRN for For Pain Tramadol Hcl* (Ultram*) 50 Mg Tablet 50 MG ORAL TID PRN for For Pain Discharge Discharge Disposition Patient was discharged to Home with Hospice (50) Discharge Diagnoses: [place] ([place])Sarahy NP Jan 09, 2017 10:08
--- NOTE | 2017-01-09 20:15 | Discharge Summary 2 SIG ---
DATE OF ADMISSION: 01/05/2017 DATE OF DISCHARGE: 01/06/2017 REASON FOR ADMISSION: 81-year-old female with a known history of stage 5 pancreatic cancer, with recent admission, presented to emergency department with altered mental status. According to family, the patient was more confused, appeared lethargic. In ED patient was able to follow simple command and maintained eye contact. Workup in the emergency room revealed fever -103.1. The patient initially required placement of 100% non-rebreathing mask due to hypoxemia. The patient was tachycardic. Urinalysis with possible evidence of UTI. Leukocytosis, WBC -19.4; mild anemia , -10.4/33. Potassium- 3.2, BUN -24, and creatinine- 1.4. Elevated transaminase with total bilirubin -3.7, direct bilirubin -3.0, and AST -120. Lactic acid was within normal limits -1.3. Troponin was negative. EKG revealed sinus tachycardia with nonspecific ST abnormality. Septic workup was initiated in the emergency room. There was concern for possible bacteremia due to the presence of Port-A-Cath for chemotherapy. The patient was given fluid challenge. The patient was pancultured and started on empiric antibiotics. Upon re-evaluation, the patient was afebrile. Heart rate stabilized at around 100, and blood pressure was stable. The patient was admitted to telemetry floor for further management with diagnosis of severe sepsis, UTI, and pancreatic CA stage V. HOSPITAL COURSE: The patient was admitted to telemetry floor. The patient was started on empiric antibiotics. ID consult was requested. Fever resolved. The patient remained in sinus tachycardia, but below 110. ID closely followed and optimized antibiotic regimen. Supplemental oxygen was provided to keep saturation above 92%. Pulmonary toilet was on standby as needed. Patient was able to be weaned from non-rebreathing mask, placed initially. Pulse oximetry was stable on the room air. No signs of respiratory distress. DVT prophylaxis was provided. Pain management was provided. Bowel regimen was instituted. Potassium was replaced. LFTs and bilirubin were closely followed, remained elevated, likely secondary to advanced pancreatic cancer. Hemoglobin and hematocrit were closely monitored, remained at the baseline. Appetite stimulant was added to existing medication regimen. Dietary consult was requested. Dietitian started the patient on Ensure three times a day and stated that the patient had a high nutritional risk. Psychiatrist seen and evaluated the patient; diagnosed the patient with major depressive disorder, anxiety disorder, and cognitive impairment. Patient was started on Lexapro. Mental status slowly improved as she was hydrated and IV antibiotic provided. She was still very weak though. The patient with DNR/DNI status. According to the son, the patient was supposed to have on 01/06/2017 at home hospice evaluation and to start hospice services. According to the son, the patient and family did not want any more chemotherapy or antibiotics. They chose comfort care/palliative care. The patient's son was asked for discharge home with the hospice services. At the time of dictation, urine culture, final negative. Blood culture preliminary negative. With IV fluids, BUN down from initial 28 to 23. The patient was subsequently discharged home with hospice services.. FINAL DIAGNOSES: 1. Acute hypoxemic respiratory failure requiring nonrebreathing mask, resolved. 2. Acute toxic metabolic encephalopathy secondary to infection and metastatic process, improved. 3. Severe sepsis. 4. Urinary tract infection. 5. Stage 5 pancreatic cancer with metastasis. 6. Anemia. 7. Protein-calorie malnutrition. 8. Hypokalemia, resolved. 9. Transaminitis. 10. Acute kidney injury. DISCHARGE MEDICATIONS: See medication reconciliation list. DISCHARGE INSTRUCTIONS: The patient was discharged home with the hospice services. Bj Sexton M.D. Sarahy Durancisco N.PBenigno DR: WAQAS JOB#: [id number] CC: MIKA
== END 2017-01-06 17:46 | disposition home or self-care (01) | DRG 871 ==
LOC: EDBD 18:10 → EMR 19:08 → 2E 19:11 → EDBEDREQ 21:12 → 2E 21:30
DX: A41.9 Sepsis, unspecified organism (principal); J96.01 Acute respiratory failure with hypoxia; N17.9 Acute kidney failure, unspecified; G92 Toxic encephalopathy; E46 Unspecified protein-calorie malnutrition; C78.7 Secondary malignant neoplasm of liver and intrahepatic bile duct; C25.9 Malignant neoplasm of pancreas, unspecified; D64.9 Anemia, unspecified; N39.0 Urinary tract infection, site not specified; R65.20 Severe sepsis without septic shock; E87.6 Hypokalemia; R74.0 Nonspecific elevation of levels of transaminase and lactic acid dehydrogenase [LDH]; F41.9 Anxiety disorder, unspecified; F32.9 Major depressive disorder, single episode, unspecified; Z66 Do not resuscitate
CPT/HCPCS: 36415; 36600; 71010; 80053; 81003; 82248; 82550; 82803; 83605; 83880; 84484; 85007; 85025; 85610; 85730; 87040; 87081; 87086; 93005; 94664; J2405